=== PATIENT | female | born 1995 | race Caucasian/White ===

== ENCOUNTER → 2019-10-03 11:50 | Outpatient (BNVA) | payer MEDICAID, SELFPAY | PROVIDERS: PCP Obstetrics & Gynecology; Visit Provider Social Worker Clinical | DX: F33.2 Major depressive disorder, recurrent severe without psychotic features (principal); F40.10 Social phobia, unspecified; F43.12 Post-traumatic stress disorder, chronic | CPT/HCPCS: 90834 ==

== ENCOUNTER → 2019-10-04 13:33 | Outpatient (BNVA) | payer MEDICAID, SELFPAY | PROVIDERS: PCP Obstetrics & Gynecology; Visit Provider Obstetrics & Gynecology | DX: Z34.03 Encounter for supervision of normal first pregnancy, third trimester (principal) | CPT/HCPCS: 36415; 81003; 85027 ==

== ENCOUNTER → 2019-10-14 12:45 | Outpatient (BNVA) | payer MEDICAID, SELFPAY | PROVIDERS: PCP Obstetrics & Gynecology; Visit Provider Obstetrics & Gynecology | DX: Z34.90 Encounter for supervision of normal pregnancy, unspecified, unspecified trimester (principal) | CPT/HCPCS: 81003 ==

== ENCOUNTER → 2019-10-28 13:28 | Outpatient (BNVA) | payer MEDICAID, SELFPAY | PROVIDERS: Visit Provider Obstetrics & Gynecology | DX: Z34.90 Encounter for supervision of normal pregnancy, unspecified, unspecified trimester (principal) | CPT/HCPCS: 81000; 81003; 84315 ==

== ENCOUNTER → 2019-10-31 11:45 | Outpatient (BNVA) | payer MEDICAID, SELFPAY | PROVIDERS: Visit Provider Social Worker Clinical | DX: F33.2 Major depressive disorder, recurrent severe without psychotic features (principal); F40.10 Social phobia, unspecified; F43.12 Post-traumatic stress disorder, chronic | CPT/HCPCS: 90834; 90832 ==

== ENCOUNTER → 2019-11-05 13:08 | Outpatient (BNVA) | payer MEDICAID, SELFPAY | PROVIDERS: Visit Provider Obstetrics & Gynecology | DX: Z01.89 Encounter for other specified special examinations (principal) | CPT/HCPCS: 81000; 84315 ==

== ENCOUNTER → 2019-11-06 11:57 | Outpatient (BNVA) | payer MEDICAID, SELFPAY | PROVIDERS: Visit Provider Social Worker Clinical | DX: F33.2 Major depressive disorder, recurrent severe without psychotic features (principal); F40.10 Social phobia, unspecified; F43.12 Post-traumatic stress disorder, chronic; Z91.5 Personal history of self-harm | CPT/HCPCS: 90834 ==

== ENCOUNTER 2019-11-15 22:15 | Outpatient (CLI) | payer MEDICAID, SELFPAY ==
[2019-11-15 22:37] VITALS: TEMP 36.8
[2019-11-15 22:38] VITALS: BP 113/66; PULSE 86; BMI 29.9
--- NOTE | 2019-11-15 22:46 | US_ITS ---
WS: [id number] US OB BPP wo NST 69917 REASON FOR EXAM: decreased movement FINDINGS: The cervix measured 5.19 cm appear to be normal with a cephalic presentation fetus. The expected date of confinement December 28, 2019 with a fetus at 34 weeks 1 day gestation. The heart rate 133 week beats per minute. Normal breathing, movement, tone, and amniotic fluid with a biophysical profile of 8/8. US/US OB BPP wo NST 52980 IMPRESSION: Normal biophysical profile.
[2019-11-15 23:08] VITALS: BP 0/0
[2019-11-15 23:09] VITALS: BP 125/76; PULSE 96
[2019-11-15 23:25] VITALS: BP 125/76; RESP 16; TEMP 36.8
== END 2019-11-15 23:35 | disposition home or self-care (01) ==
LOC: OPOB 22:28 → OBGYN 23:25 → OPOB 11-18 07:39
PROVIDERS: Visit Provider Obstetrics & Gynecology
DX: O36.8190 Decreased fetal movements, unspecified trimester, not applicable or unspecified (principal); Z3A.00 Weeks of gestation of pregnancy not specified
CPT/HCPCS: 59025; 76819; 99211

== ENCOUNTER → 2019-11-18 10:50 | Outpatient (BNVA) | payer MEDICAID, SELFPAY | PROVIDERS: Visit Provider Obstetrics & Gynecology | DX: Z34.93 Encounter for supervision of normal pregnancy, unspecified, third trimester (principal) | CPT/HCPCS: 81003 ==

== ENCOUNTER → 2019-11-19 10:44 | Outpatient (BNVA) | payer MEDICAID, SELFPAY | PROVIDERS: Visit Provider Counselor Professional | DX: F33.2 Major depressive disorder, recurrent severe without psychotic features (principal); F40.10 Social phobia, unspecified; F43.12 Post-traumatic stress disorder, chronic; Z91.5 Personal history of self-harm | CPT/HCPCS: 90834 ==

== ENCOUNTER → 2019-11-27 09:44 | Outpatient (BNVA) | payer MEDICAID, SELFPAY | PROVIDERS: Visit Provider Counselor Professional | DX: F33.2 Major depressive disorder, recurrent severe without psychotic features (principal); F40.10 Social phobia, unspecified; F43.12 Post-traumatic stress disorder, chronic; Z91.5 Personal history of self-harm | CPT/HCPCS: 90834 ==

== ENCOUNTER → 2019-12-02 11:20 | Outpatient (BNVA) | payer MEDICAID, SELFPAY | PROVIDERS: Visit Provider Obstetrics & Gynecology | DX: Z34.90 Encounter for supervision of normal pregnancy, unspecified, unspecified trimester (principal) | CPT/HCPCS: 84315; 87081 ==

== ENCOUNTER → 2019-12-06 11:51 | Outpatient (BNVA) | payer MEDICAID, SELFPAY | PROVIDERS: Visit Provider Counselor Professional | DX: F43.12 Post-traumatic stress disorder, chronic (principal) | CPT/HCPCS: 90834 ==

== ENCOUNTER → 2019-12-09 11:04 | Outpatient (BNVA) | payer MEDICAID, SELFPAY | PROVIDERS: Visit Provider Obstetrics & Gynecology | DX: Z34.90 Encounter for supervision of normal pregnancy, unspecified, unspecified trimester (principal) | CPT/HCPCS: 81003 ==

== ENCOUNTER → 2019-12-16 11:07 | Outpatient (BNVA) | payer MEDICAID, SELFPAY | PROVIDERS: Visit Provider Obstetrics & Gynecology | DX: Z34.90 Encounter for supervision of normal pregnancy, unspecified, unspecified trimester (principal) | CPT/HCPCS: 81000 ==

== ENCOUNTER → 2019-12-24 10:15 | Outpatient (BNVA) | payer MEDICAID, SELFPAY | PROVIDERS: Visit Provider Obstetrics & Gynecology | DX: Z34.90 Encounter for supervision of normal pregnancy, unspecified, unspecified trimester (principal) | CPT/HCPCS: 81000 ==

== ENCOUNTER 2019-12-25 08:35 | Inpatient (IN) | payer MEDICAID, SELFPAY ==
[2019-12-25] VITALS (96 sets, daily range): BP systolic 0–141; BP diastolic 0–80; PULSE 67–116; RESP 16–18; TEMP 36.4–37; O2SAT 97–99
[2019-12-25 09:12] LABS: Basophils % 0.2 %; Eosinophils # 0.1 10^3/uL (0.0-0.8); Eosinophils % 0.7 %; Hematocrit 36.4 % (37.0-47.0); Hemoglobin 12.1 g/dL (11.5-15.3); Lymphocytes # 2.2 10^3/uL (0.8-4.8); Lymphocytes % 15.8 %; Mean Corpuscular HGB Conc 33.2 g/dL (30.0-36.0); Mean Corpuscular Hemoglobin 30.2 pg (28.0-34.0); Mean Corpuscular Volume 90.8 fL (81-99); Mean Platelet Volume 11.4 fL (7.4-10.4); Monocytes # 0.8 10^3/uL (0.2-0.9); Monocytes % 5.9 %; Neutrophils # 10.5 10^3/uL (1.8-7.7); Nucleated Red Blood Cells % 0 %; Platelet Count 208 10^3/cmm (130-400); Red Blood Count 4.01 10^6/uL (4.1-5.3); Red Cell Distribution Width 13.4 % (12.1-15.1); White Blood Count 13.8 10^3/uL (4.0-10.0)
[2019-12-25] MEDS: lactated ringers 1,000 ML 999 ML IV ×2 (09:23→11:55)
[2019-12-25] MEDS: dextrose 5%-lactated ringers 1,000 ML 125 ML IV ×2 (10:06→13:28)
[2019-12-25 10:41] LABS: Amphetamines Screen Urine Negative (Negative); Barbiturates Screen Urine Negative (Negative); Benzodiazepines Screen Urine Negative (Negative); Cocaine Screen Urine Negative (Negative); Opiate Screen Urine Negative (Negative); PCP Screen Urine Negative (Negative); THC Screen Urine Negative (Negative)
--- NOTE | 2019-12-25 11:22 | ANES.PAUD2 ---
Pre-Anesthetic Update Pre-Anesthetic Assessment: Date of Surgery/Procedure: 12/25/19 Preop Diagnosis: term pregnency ED 12/25 Proposed Procedure: epidural Any changes to Pre-Anesthetic Assessment?: No Labs Last 48hrs: Laboratory Results - last 48 hr 12/25/19 12/25/19 08:40 09:30 WBC 13.8 H RBC 4.01 L Hgb 12.1 Hct 36.4 L MCV 90.8 MCH 30.2 MCHC 33.2 RDW 13.4 Plt Count 208 MPV 11.4 H Neut % (Auto) 76.0 Lymph % (Auto) 15.8 [place] % (Auto) 5.9 Eos % (Auto) 0.7 Baso % (Auto) 0.2 Neut # (Auto) 10.5 H Lymph # (Auto) 2.2 [place] # (Auto) 0.8 Eos # (Auto) 0.1 Baso # (Auto) 0.0 Nucleated RBC % (a uto) 0 Nucleated RBCs # 0.0 Urine Opiates Scre en Negative Ur Barbiturates Sc reen Negative Ur Phencyclidine S crn Negative Ur Amphetamines Sc reen Negative U Benzodiazepines Scrn Negative Urine Cocaine Scre en Negative U Marijuana (THC) Screen Negative Vitals: Temperature 97.6 F 12/25/19 08:38 Temperature Source Oral 12/25/19 08:38 Pulse Rate 80 12/25/19 11:14 Respiratory Rate 17 12/25/19 08:38 Blood Pressure 125/68 12/25/19 11:14 Blood Pressure Bonnie n 87 12/25/19 11:14 Exam: Pre-Anes Outpt Exam: alert, oriented x 3, clear to auscultation bilaterally and regular rate & rhythm Cardiac Studies: No Data to Display
--- NOTE | 2019-12-25 11:57 | P.ANES_ITS ---
Anesthesia Procedures Procedure/Date: 12/25/19 epidural Procedure Narrative: epidural complete,bolus given, epidural pump initiated with MANAGING MANAGER education given, vitals taken during the procedure using OBIX system and satisfactory throughout, patient admits to decreased pain, report of procedure to OB RN Epidural: Time Out Performed: Yes Consents Signed: Procedure Consent Consent: requested by attending/covering physician, from patient, risks and benefits reviewed and patient agrees to proceed Lumbar Level: L3-L4 Epidural position: sitting Epidural procedure: sterile prep of area, 1% lidocaine to numb the area (3mL), 18 g needle, negative for paresthesia passed, neg for paresthesia, test dose given, 1.5% xylocaine 1:200k epi (5mL), 0.2% Ropivacaine bolus ml, placed PCEA, no systemic response, sterile dressing applied, L.U.D. no apparent complications and 0.2% Ropiavacaine @ mls/hr (13mL/HR)
[2019-12-26] VITALS (16 sets, daily range): BP systolic 0–134; BP diastolic 0–76; PULSE 67–97; RESP 16–18; TEMP 36.6–36.9
--- NOTE | 2019-12-26 00:13 | PM.DELIVERY ---
 Delivery Note: Date of delivery: December 26, 2019 Pre-delivery diagnoses: Term Post-delivery diagnoses: Term delivered Procedure: Spontaneously vaginal delivery Op report anesthesia: Epidural Delivering Physician: Nikhil Christie MD Estimated blood loss (mL): 500 Delivery: The patient was noted to be complete and pushing, and was placed in the dorsal lithotomy position, prepped and draped in the usual sterile fashion for a vaginal delivery. Pt. Noted to have epidural anesthesia. At time the patient delivered a Viable Male infant at 39+6 weeks weighing 3460 g with scores of 8 and 9 at one and five minutes, respectively. The vertex was delivered spontaneously over Intact perineum. The patient was asked to push and the head delivered spontaneously in the RAY position, over an intact perineum. A nuchal cord was checked and None noted. The anterior shoulder delivered easily and the posterior shoulder followed. The remainder of the was easily delivered and the oropharynx and nasopharynx was bulb suctioned. The infant was noted to have spontaneous cry and spontaneous movement of all four extremities. The cord was clamped x 2 and cut and noted to have 2 arteries and one vein. The infant was passed to the [facility] where the licensing engineer and nursing personnel were in attendance. Cord blood sample was then obtained. The placenta delivered intact Spontaneously and the uterus was explored. 20 units of Pitocin was placed in the IV bag to firm the uterus. Examination of the cervix and vaginal vault did not reveal any lacerations. A vaginal pack was then placed. Examination of the perineum showed no lacerations. The vaginal pack was then removed. The patient tolerated this procedure well, and recovered in L&D with her to the OB eaton. All sponge and needle counts were correct. Post-Delivery Status: Hemodynamically stable A&P Additional A&P Information Term delivered Coding Level of Care Code Acute Transitional Living Specialist for Deion Leiva
[2019-12-26] MEDS: fluoxetine 20 mg Capsule PO (09:55)
[2019-12-26] MEDS: prenatal vitamin Capsule 1 CAP PO (09:55)
[2019-12-26] MEDS: BuSPIRONE 10 mg Tablet PO ×2 (09:56→22:19)
[2019-12-26 12:40] LABS: Hematocrit 31.1 % (37.0-47.0); Hemoglobin 10.1 g/dL (11.5-15.3); Mean Corpuscular HGB Conc 32.5 g/dL (30.0-36.0); Mean Corpuscular Hemoglobin 29.8 pg (28.0-34.0); Mean Corpuscular Volume 91.7 fL (81-99); Mean Platelet Volume 10.7 fL (7.4-10.4); Platelet Count 149 10^3/cmm (130-400); Red Blood Count 3.39 10^6/uL (4.1-5.3); Red Cell Distribution Width 13.5 % (12.1-15.1); White Blood Count 15.5 10^3/uL (4.0-10.0)
[2019-12-27 01:00] VITALS: BP 127/66; PULSE 78; RESP 18
[2019-12-27 04:00] VITALS: BP 112/67; PULSE 82; RESP 16
--- NOTE | 2019-12-27 07:31 | PM.OBGYDC ---
Discharge Providers CHEMISTRY QUALITY CONTROL TECHNICIAN Date of Admission: 12/25/19 08:35 Date of Discharge: 01/06/20 Attending Provider at Admission: Brett Quevedo MD Attending Provider at Discharge: Nikhil Christie M.D. Diagnoses at Discharge Discharge Diagnosis (1) Term delivered: Status: Acute Problem details: 23-year-old female status post spontaneous vaginal delivery at 39 weeks +6 days, day 1 Reason for Visit Reason for Visit: Reason For Visit: Contractions Hospital Course Hospital Course: Patient came to labor and delivery with complaint of low back pain, bleeding and contractions. She was found to be an early active labor. After she brushed her membranes before active labor thick meconium was noted, but heart tracing was category 1. She progressed to have a spontaneous vaginal delivery without complications. observation was uneventful. She is afebrile and hemodynamically stable. Tolerating diet well. She have not made up her mind to which contraception she will be using and will be discussing it at the 6 weeks visit. Information Peripartum Data: Delivery Method: Vaginal Laceration description: None Episiotomy description: None complications: none Physical Exam Narrative: EXAM NARRATIVE: GA; alert and oriented x 3 HEENT: normal Breasts: engorged Nipples - skin intact Lungs; clear to auscultation Heart: regular rhythm, no murmurs. Abd: Appropriately tender. BS+. Uterine fundus below umbilicus. No Fundal Tenderness. Perineum: normal lochia. Extremities: no edema, no cyanosis, no tenderness. Urinary Catheter Management^: Colón: Cath Placed During This Visit: yes Reason for Continuing Indwelling Catheter: Required Immobilization for Trauma or Surgery or Anesthesia Urinary Catheter Date of Insertion: 12/25/19 Urinary Catheter Time of Insertion: 12:15 Discharge Data Data Completed and Pending: Labs from last 24 hours 12/26/19 12:33 WBC 15.5 H RBC 3.39 L Hgb 10.1 L Hct 31.1 L MCV 91.7 MCH 29.8 MCHC 32.5 RDW 13.5 Plt Count 149 MPV 10.7 H Vitals: Last Vital Signs Temp 98.1 F 12/26/19 16:00 Pulse 83 12/26/19 16:00 Resp 18 12/26/19 16:00 BP 110/68 12/26/19 16:00 Pulse Ox 99 12/25/19 11:53 Discharge Plan Discharge Patient Disposition: Home, Self-Care Condition: Stable Prescriptions: New acetaminophen 500 mg capsule 500 mg PO Q4H PRN (Reason: fever or pain) Qty: 60 RF: 0 Continued prenat.vits,jodie,[id number] Tablet 1 tab PO QDAY RF: 0 buspirone 10 mg tablet 10 mg PO BID Qty: 60 RF: 3 fluoxetine 20 mg capsule 20 mg PO DAILY Qty: 30 RF: 3 hydroxyzine HCl 25 mg tablet 25 mg PO QID PRN (Reason: anxiety) Qty: 40 RF: 2 Iron (ferrous sulfate) 325 mg (65 mg iron) tablet 325 mg PO BID RF: 0 Discharge Orders: Discharge Order (Routine); Ordered 12/27/19 Ordered By: Nikhil Christie Referrals: Brett Quevedo MD [Physician] - 6 Weeks (Your 6 week check up with Dr. Quevedo is scheduled on 02-07-20 at 12:45 pm.) Discharge Diet: As Directed Discharge Activity: Increase activity as tolerated Patient Instructions: Iron Supplements (By mouth), Acetaminophen (By mouth), Buspirone (By mouth), Fluoxetine (By mouth), Vitamins (By mouth), Hydroxyzine Hydrochloride (By mouth), Vaginal Delivery (DC), OB Discharge Report, OB Food/Drug Interaction Guide, OB Care at Home, OB Home Care, OB Proud Parent Packet, OB Vaginal Deliveries Activity Restrictions/Additional Instructions: Pelvic rest for 6 weeks (no sex, no tampons, no vaginal douches). Return to the emergency room if any fever, increased bleeding or pain. Discharge Date/Time: 12/27/19 12:15 Discharge Attestations CHEMISTRY QUALITY CONTROL TECHNICIAN Time Spent in Discharge Care*: greater than 30 min Specific Discharge Activities: Specific discharge activities: educating patient and educating and/or supporting family/caregiver Time Spent in Smoking Cessation: Time spent discussing smoking cessation with patient: 3 to 10 minutes Coding Level of Care Code Acute Link Wire Fabric Machine Operator for Kettyg Fwd Diagnoses Term delivered O80
--- NOTE | 2019-12-27 07:33 | P.PN_ITS ---
Subjective Subjective: Interval history: 23-year-old female , status post spontaneous vaginal delivery day 1. Feeling well, denies any pain and discomfort. Vitals/I&O/Wt Last Vital Signs Temp 98.1 F 12/26/19 16:00 Pulse 83 12/26/19 16:00 Resp 18 12/26/19 16:00 BP 110/68 12/26/19 16:00 Pulse Ox 99 12/25/19 11:53 Weight last 48 hrs Weight 87.09 kg Physical Exam Narrative: EXAM NARRATIVE: GA; alert and oriented x 3 HEENT: normal Breasts: engorged Nipples - skin intact Lungs; clear to auscultation Heart: regular rhythm, no murmurs. Abd: Appropriately tender. BS+. Uterine fundus below umbilicus. No Fundal Tenderness. Perineum: normal lochia. Extremities: no edema, no cyanosis, no tenderness. Urinary Catheter Management^: Colón: Cath Placed During This Visit: yes Reason for Continuing Indwelling Catheter: Required Immobilization for Trauma or Surgery or Anesthesia Urinary Catheter Date of Insertion: 12/25/19 Urinary Catheter Time of Insertion: 12:15 Data : 12/26/19 12:33 A&P Additional A&P Information 23-year-old female status post spontaneous vaginal delivery without complications , day 1. She is afebrile hemodynamically stable. Attestations Medical Necessity Statement*: In my professional opinion for admitting diagnosis Coding Level of Care Code Acute Calculus Professor for Deion Leiva
[2019-12-27] MEDS: lanolin oint 7 gm 1 APPLIC TOPICAL (07:47)
[2019-12-27 10:01] VITALS: BP 104/65; PULSE 93; RESP 15; TEMP 36.8
[2019-12-27] MEDS: prenatal vitamin Capsule 1 CAP PO (10:01)
[2019-12-27] MEDS: docusate sodium 100 mg Capsule PO (10:01)
[2019-12-27] MEDS: BuSPIRONE 10 mg Tablet PO (10:02)
[2019-12-27] MEDS: fluoxetine 20 mg Capsule PO (10:02)
[2019-12-27] MEDS: benzocaine-menthol 78 gm Canister 1 SPRAY TOPICAL (10:03)
--- NOTE | 2019-12-27 10:49 | PC.NURSE ---
Physical Assessment numerous scarring for what appears to be previous self-mutilation noted on bilateral upper and lower arms.
[2019-12-27] MEDS: measles,mumps,rubella pf Vial (w/diluent) 0.5 ML SUBCUT (11:42)
[2019-12-27 13:19] VITALS: BP 104/65; PULSE 93; RESP 15; TEMP 36.8
== END 2019-12-27 12:15 | disposition home or self-care (01) | DRG 807 ==
LOC: OPOB 08:37
PROVIDERS: Obstetrics & Gynecology; Admitting Provider Obstetrics & Gynecology; Visit Provider Obstetrics & Gynecology
DX: O80 Encounter for full-term uncomplicated delivery (principal); Z37.0 Single live birth; Z3A.39 39 weeks gestation of pregnancy
CPT/HCPCS: 12345; 36415; 51702; 59409; 80306; 85025; 85027; 90707; 96372; 98960; 99211; J2795

== ENCOUNTER → 2019-12-27 11:08 | Outpatient (BNVA) | payer MEDICAID, SELFPAY | PROVIDERS: Visit Provider Counselor Professional | DX: F33.2 Major depressive disorder, recurrent severe without psychotic features (principal); F43.12 Post-traumatic stress disorder, chronic | CPT/HCPCS: 90832 ==

== ENCOUNTER → 2020-07-10 08:39 | Outpatient (BNVA) | payer MEDICAID, SELFPAY | PROVIDERS: Visit Provider Counselor Professional | DX: F33.2 Major depressive disorder, recurrent severe without psychotic features (principal); F43.12 Post-traumatic stress disorder, chronic | CPT/HCPCS: 90834 ==

== ENCOUNTER → 2020-07-16 07:37 | Outpatient (BNVA) | payer MEDICAID, SELFPAY | PROVIDERS: Visit Provider Counselor Professional | DX: F43.12 Post-traumatic stress disorder, chronic (principal) | CPT/HCPCS: 90834 ==

== ENCOUNTER → 2020-07-28 07:51 | Outpatient (BNVA) | payer MEDICAID, SELFPAY | PROVIDERS: Visit Provider Counselor Professional | DX: F43.12 Post-traumatic stress disorder, chronic (principal) | CPT/HCPCS: 90834 ==

== ENCOUNTER → 2020-08-11 08:03 | Outpatient (BNVA) | payer MEDICAID, SELFPAY | PROVIDERS: Visit Provider Counselor Professional | DX: F43.12 Post-traumatic stress disorder, chronic (principal) | CPT/HCPCS: 90834 ==

== ENCOUNTER → 2020-08-31 08:28 | Outpatient (BNVA) | payer MEDICAID, SELFPAY | PROVIDERS: Visit Provider Counselor Professional | DX: F43.12 Post-traumatic stress disorder, chronic (principal) | CPT/HCPCS: 90834 ==

== ENCOUNTER → 2020-09-17 08:00 | Outpatient (BNVA) | payer MEDICAID, SELFPAY | PROVIDERS: Visit Provider Counselor Professional | DX: F43.12 Post-traumatic stress disorder, chronic (principal) | CPT/HCPCS: 90834 ==

== ENCOUNTER → 2020-10-07 08:13 | Outpatient (BNVA) | payer MEDICAID, SELFPAY | PROVIDERS: Visit Provider Counselor Professional | DX: F43.12 Post-traumatic stress disorder, chronic (principal) | CPT/HCPCS: 90834 ==

== ENCOUNTER → 2020-10-21 08:21 | Outpatient (BNVA) | payer MEDICAID, SELFPAY | PROVIDERS: Visit Provider Counselor Professional | DX: F43.12 Post-traumatic stress disorder, chronic (principal) | CPT/HCPCS: 90834 ==

== ENCOUNTER → 2020-11-05 07:42 | Outpatient (BNVA) | payer MEDICAID, SELFPAY | PROVIDERS: Visit Provider Counselor Professional | DX: F43.12 Post-traumatic stress disorder, chronic (principal) | CPT/HCPCS: 90834 ==

== ENCOUNTER → 2020-11-18 07:49 | Outpatient (BNVA) | payer MEDICAID, SELFPAY | PROVIDERS: Visit Provider Counselor Professional | DX: F43.12 Post-traumatic stress disorder, chronic (principal) | CPT/HCPCS: 90834 ==

== ENCOUNTER → 2020-12-01 08:02 | Outpatient (BNVA) | payer MEDICAID, SELFPAY | PROVIDERS: Visit Provider Counselor Professional | DX: F33.2 Major depressive disorder, recurrent severe without psychotic features (principal) | CPT/HCPCS: 90834 ==

== ENCOUNTER → 2020-12-15 08:08 | Outpatient (BNVA) | payer MEDICAID, SELFPAY | PROVIDERS: Visit Provider Counselor Professional | DX: F33.2 Major depressive disorder, recurrent severe without psychotic features (principal) | CPT/HCPCS: 90834 ==

== ENCOUNTER → 2021-01-20 08:17 | Outpatient (BNVA) | payer MEDICAID, SELFPAY | PROVIDERS: Visit Provider Counselor Professional | DX: F33.2 Major depressive disorder, recurrent severe without psychotic features (principal) | CPT/HCPCS: 90834 ==

== ENCOUNTER → 2021-02-16 08:54 | Outpatient (BNVA) | payer MEDICAID, SELFPAY | PROVIDERS: Visit Provider Counselor Professional | DX: F43.12 Post-traumatic stress disorder, chronic (principal); F33.2 Major depressive disorder, recurrent severe without psychotic features | CPT/HCPCS: 90791 ==

== ENCOUNTER → 2021-03-09 10:51 | Outpatient (BNVA) | payer MEDICAID, SELFPAY | PROVIDERS: Visit Provider Counselor Professional | DX: F43.12 Post-traumatic stress disorder, chronic (principal); F33.2 Major depressive disorder, recurrent severe without psychotic features | CPT/HCPCS: 90834 ==

== ENCOUNTER → 2021-03-31 08:13 | Outpatient (BNVA) | payer MEDICAID, SELFPAY | PROVIDERS: Visit Provider Counselor Professional | DX: F43.12 Post-traumatic stress disorder, chronic (principal); F33.41 Major depressive disorder, recurrent, in partial remission | CPT/HCPCS: 90834 ==

== ENCOUNTER → 2021-04-12 12:07 | Outpatient (BNVA) | payer OTHER, SELFPAY | PROVIDERS: Visit Provider Nurse Practitioner Family | DX: Z20.822 Contact with and (suspected) exposure to COVID-19 (principal) | CPT/HCPCS: 87635 ==

== ENCOUNTER → 2021-04-28 08:43 | Outpatient (BNVA) | payer OTHER, SELFPAY | PROVIDERS: Visit Provider Counselor Professional | DX: F43.12 Post-traumatic stress disorder, chronic (principal) | CPT/HCPCS: 90834 ==

== ENCOUNTER 2021-06-29 13:23 | Outpatient (CLI) | payer MEDICAID, SELFPAY ==
--- NOTE | 2021-06-29 13:45 | XR_ITS ---
WS: [id number] Exam: XR thoracic spine 2V [id number] Date/Time of Exam: 06/29/2021 1:45 PM Reason For Exam: CHRONIC BACK PAIN No acute fracture or dislocation. Disc spaces are preserved. Normal paraspinal soft tissues. There ma y be slight levoscoliosis however this could be positional. XR/XR thoracic spine 2V [id number] IMPRESSION: 1. No fracture or malalignment. 2. Slight levoscoliosis that may be positional.
--- NOTE | 2021-06-29 13:45 | XR_ITS ---
WS: [id number] Exam: XR cervical spine 3V* [id number] Date/Time of Exam: 06/29/2021 1:45 PM Reason For Exam: CHRONIC BACK PAIN No fracture or dislocation. There is straightening and reversal of the normal cervical C curve. The o dontoid is intact. Paraspinal soft tissues appear normal. XR/XR cervical spine 3V* [id number] IMPRESSION: 1. No fracture or dislocation. 2. Straightening and reversal of the normal cervical lordosis.
== END 2021-06-29 13:24 | disposition home or self-care (01) ==
LOC: RAD 13:31
PROVIDERS: PCP Family Medicine; Visit Provider Family Medicine
DX: M54.6 Pain in thoracic spine (principal); M54.2 Cervicalgia; G89.29 Other chronic pain
CPT/HCPCS: 72040; 72070

== ENCOUNTER → 2021-09-13 13:47 | Outpatient (BNVA) | payer OTHER, MEDICAID, SELFPAY | PROVIDERS: PCP Family Medicine; Visit Provider Counselor Mental Health | DX: F43.12 Post-traumatic stress disorder, chronic (principal) | CPT/HCPCS: 90834 ==

== ENCOUNTER → 2021-09-21 13:57 | Outpatient (BNVA) | payer OTHER, MEDICAID, SELFPAY | PROVIDERS: PCP Family Medicine; Visit Provider Counselor Mental Health | DX: F43.12 Post-traumatic stress disorder, chronic (principal) | CPT/HCPCS: 90837; 90834 ==

== ENCOUNTER 2021-11-25 20:54 | Emergency (ER) | payer MEDICAID, SELFPAY ==
[2021-11-25 21:05] VITALS: BP 124/78; PULSE 88; RESP 16; TEMP 36.2; O2SAT 97; BMI 31.3
--- NOTE | 2021-11-25 21:14 | W.ED.GENADLT ---
HPI - General Adult General: Chief complaint: General Medical Stated complaint: Drain Tube Came Out Time Seen by Provider: 11/25/21 21:02 Source: patient and family Mode of arrival: ambulatory Limitations: no limitations History of Present Illness: Patient is a 26-year-old female who presents to ED today with a concern that one of her MARCIANO drains might be malfunctioning. Patient states she had a breast reduction surgery in [place] 3 days ago and had bilateral MARCIANO drains placed. She states when she was taking off clothing earlier today she felt like her right drain pulled and states now her bulb is not holding suction as well and has noticed her tube does not seem to be draining as well as the left tube. She is not having any pain. Associated symptoms: Reports no associated symptoms; Deny chest pain, dyspnea or malaise Treatments prior to arrival: none Review of Systems Const: Denies: fever(s), chills, body aches, fatigue or malaise Card: Denies: chest pain Resp: Denies: dyspnea GI: Denies: abdominal pain Musc: Denies: neck pain, back pain, extremity pain or joint pain PFSH ED PFSH: Family History Grandfather Hypertension maternal Heart disease maternal Hyperlipidemia maternal Lung cancer maternal Mother Diabetes Stroke Grandmother Stroke paternal Thyroid condition paternal Breast cancer maternal great Family/Other Breast cancer maternal great aunt Ovarian cancer maternal great aunt Uterine cancer maternal great aunt, paternal aunt Social History Smoking and tobacco status: never smoked Alcohol intake: never Physical Exam Const: COMMON NORMALS: no acute distress, average body habitus, patient oriented x3, no limitations, healthy appearing, alert and well nourished GENERAL APPEARANCE: cooperative ORIENTATION/CONSCIOUSNESS: Yes awake, Yes oriented to person, Yes oriented to place and Yes oriented to time Chest: COMMONS NORMALS: normal inspection of the chest OTHER: bilateral MARCIANO drains noted; both sites are clean w/ no drainage, erythema, or odor; her R MARCIANO drain site does have an intact stitch that looks like it has been slightly pulled out (less than 1cm); bulb is still holding suction-maybe slightly less than the L but there is still fluid/drainage happening in tubing/bulb Resp: COMMON NORMALS: normal respiratory effort and clear to auscultation bilaterally AUSCULTATION: clear to auscultation bilaterally Cardio: COMMON NORMALS: regular rate and regular rhythm RATE: regular rate RHYTHM: regular rhythm Neuro: COMMON NORMALS: patient oriented x3 SENSORIUM/ORIENTATION: Yes alert, Yes oriented to person, Yes oriented to place and Yes oriented to time Course Vital Signs: Vital signs: Vital Signs Temperature 97.1 F L 11/25/21 21:05 Pulse Rate 88 11/25/21 21:05 Respiratory Rate 16 11/25/21 21:05 Blood Pressure 124/78 11/25/21 21:05 Pulse Oximetry 97 11/25/21 21:05 MDM - General Adult Medical Decision Making At this point there is no evidence for infection. Family is asking if I would remove the MARCIANO drains which I do not feel comfortable doing. She has a follow-up appointment with her surgeon in a few days. Ultimately her right MARCIANO drain is still functioning minimally. There is no risk of leaving the drain as is and contacting her surgeon tomorrow for further instructions. Return to ED precautions verbally given to patient/family. Discharge Plan Discharge Patient Disposition: Home Clinical Impression: Broken Kulwinder-Wiseman drain Qualifiers: Encounter type: initial encounter Qualified Code(s): T85.698A - Other mechanical complication of other specified internal prosthetic devices, implants and grafts, initial encounter Condition: Stable Prescriptions: No Action buspirone 10 mg tablet 10 mg PO BID 0RF fluoxetine 40 mg capsule 40 mg PO DAILY 0RF Discharge Orders: Discharge ED (Routine); Ordered 11/25/21 Ordered By: Candy Barker Referrals: Tiago Grimaldo MD [Primary Care Provider] - Coding Level of Care Code ED Associate Designer for Deion Leiva
== END 2021-11-25 21:35 | disposition home or self-care (01) ==
PROVIDERS: Emergency Provider Physician Assistant; PCP Family Medicine
DX: T85.698A Other mechanical complication of other specified internal prosthetic devices, implants and grafts, initial encounter (principal)
CPT/HCPCS: 99281

== ENCOUNTER 2021-12-05 06:43 | Emergency (ER) | payer MEDICAID, SELFPAY ==
[2021-12-05 07:03] VITALS: BP 112/72; PULSE 80; RESP 18; TEMP 36.8; O2SAT 97; BMI 31.3
--- NOTE | 2021-12-05 07:15 | W.ED.SKABFB ---
HPI - Skin/Abscess/Foreign Bdy General: Chief complaint: Skin/Abscess/Foreign Body Stated complaint: Swelling an redness under breast Time Seen by Provider: 12/05/21 07:09 Source: patient Mode of arrival: ambulatory Limitations: no limitations History of Present Illness: 26-year-old female presents to the ER today for redness, tenderness, swelling under her left breast. Patient had a bilateral breast reduction about 2-1/2 weeks ago. Patient reports things have been going pretty well until yesterday when she noticed some increased tenderness and tightness in her left breast. Patient reports underneath it it became red and has worsened overnight. Patient reports that just feels very tight and tender. She did not sleep well due to the pain. Patient plans to call her surgeon tomorrow regarding this however felt like she might need some antibiotics today. Denies any fever or chills. Denies any nausea or vomiting. Patient reports otherwise the healing process has been going well. Onset (ago): hour(s) (24) Location: chest (Left breast) Severity: moderate Pain Consistency: constant Context: other (Recent breast reduction) Review of Systems General: Reports: 10 or more systems reviewed and unremarkable except in HPI and below PFSH ED PFSH: Family History Grandfather Hypertension maternal Heart disease maternal Hyperlipidemia maternal Lung cancer maternal Mother Diabetes Stroke Grandmother Stroke paternal Thyroid condition paternal Breast cancer maternal great Family/Other Breast cancer maternal great aunt Ovarian cancer maternal great aunt Uterine cancer maternal great aunt, paternal aunt Social History Smoking and tobacco status: never smoked Alcohol intake: never Physical Exam Const: COMMON NORMALS: no acute distress, average body habitus, patient oriented x3, no limitations, healthy appearing, alert and well nourished Neck/C-Spine: COMMON NORMALS: full ROM, no lymphadenopathy and supple Chest: Breast/axilla inspection: Yes abnormal inspection of the breast (Left breast has erythema, tenderness, swelling underneath.) OTHER: Patient has had recent bilateral breast reduction. Most incisions appear to be healing well however there is significant redness and mild swelling noted on the left breast inferior. No active drainage is noted. This is warm to the touch. Resp: COMMON NORMALS: normal respiratory effort, No retractions and clear to auscultation bilaterally AUSCULTATION: clear to auscultation bilaterally Cardio: COMMON NORMALS: regular rate, regular rhythm and No murmurs present (Cardio) RATE: regular rate RHYTHM: regular rhythm GI: COMMON NORMALS: Normal to inspection, nondistended, normoactive bowel sounds present, Soft to palpation and non-tender PALPATION: Yes Soft to palpation Extremity: COMMON NORMALS: normal to inspection and full ROM Neuro: COMMON NORMALS: patient oriented x3 SENSORIUM/ORIENTATION: Yes alert Psych: COMMON NORMALS: mental status grossly normal, Normal thought process present and cooperative THOUGHT PROCESS: Normal thought process present Skin: NARRATIVE SKIN EXAM: See chest exam Course ED course: Patient presents the ER today with concerns for infection of a recent surgical incision site. Patient had bilateral breast reduction about 2-1/2 weeks ago. Patient has tenderness, redness, swelling under the left breast. On exam there does appear to be increased erythema under the left breast in comparison to the right. No drainage is noted at this time. We will get a CBC and start patient on antibiotics outpatient. Patient will call her surgeon tomorrow. Vital Signs: Vital signs: Vital Signs Temperature 98.3 F 12/05/21 07:03 Pulse Rate 80 12/05/21 07:03 Respiratory Rate 18 12/05/21 07:03 Blood Pressure 112/72 12/05/21 07:03 Pulse Oximetry 97 12/05/21 07:03 MDM - Skin/Abscess/Foreign Bdy Medicial Decision Making 26-year-old female patient presents the ER today with concerns for infection of a recent surgical incision site. Patient had bilateral breast reduction about 2-1/2 weeks ago. Patient has tenderness, redness, swelling under the left breast. On exam there does appear to be increased erythema under the left breast in comparison to the right. No drainage is noted at this time. We will get a CBC and start patient on antibiotics outpatient. White count very minimally bumped, hemoglobin slightly low. We'll place patient on Bactrim at this time. 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 Patient will call her surgeon tomorrow. Return to the ER with new or worsening symptoms. Patient verbalized understanding and is in agreement with the treatment plan. Lab Data Reviewed : 12/05/21 07:30 Laboratory Results WBC 10.9 10^3/uL (4.0-10.0) H 12/05/21 07:30 RBC 3.71 10^6/uL (4.1-5.3) L 12/05/21 07:30 Hgb 10.7 g/dL (11.5-15.3) L 12/05/21 07:30 Hct 33.4 % (37.0-47.0) L 12/05/21 07:30 MCV 90.0 fl (81-99) 12/05/21 07:30 MCH 28.8 pg (28.0-34.0) 12/05/21 07:30 MCHC 32.0 g/dL (30.0-36.0) 12/05/21 07:30 RDW 12.5 % (12.1-15.1) 12/05/21 07:30 Plt Count 320 10^3/cmm (130-400) 12/05/21 07:30 MPV 9.7 fL (7.4-10.4) 12/05/21 07:30 Neut % (Auto) 67.6 % 12/05/21 07:30 Lymph % (Auto) 22.7 % 12/05/21 07:30 [place] % (Auto) 7.3 % 12/05/21 07:30 Eos % (Auto) 1.6 % 12/05/21 07:30 Baso % (Auto) 0.4 % 12/05/21 07:30 Neut # (Auto) 7.35 10^3/uL (1.8-7.7) 12/05/21 07:30 Lymph # (Auto) 2.5 10^3/uL (0.8-4.8) 12/05/21 07:30 [place] # (Auto) 0.8 10^3/uL (0.2-0.9) 12/05/21 07:30 Eos # (Auto) 0.2 10^3/uL (0.0-0.8) 12/05/21 07:30 Baso # (Auto) 0.0 10^3/uL (0.0-0.1) 12/05/21 07:30 Nucleated RBC % (auto) 0 % 12/05/21 07:30 Nucleated RBCs # 0.0 /100WBC 12/05/21 07:30 Discharge Plan Discharge Patient Disposition: Home Clinical Impression: Cellulitis Condition: Stable Prescriptions: New Bactrim DS 800-160 mg tablet 1 tab PO Q12H 10 Days Qty: 20 0RF No Action buspirone 10 mg tablet 10 mg PO BID 0RF fluoxetine 40 mg capsule 40 mg PO DAILY 0RF Discharge Orders: Discharge ED (Routine); Ordered 12/05/21 Ordered By: Michelle Ramsey Referrals: Tiago Grimaldo MD [Primary Care Provider] - Discharge Diet: Advance as tolerated Discharge Activity: Limit activity as instructed Activity Restrictions/Additional Instructions: Take antibiotics as prescribed. Tylenol alternating with Motrin for pain. Follow-up with the surgeon tomorrow regarding cellulitis. Return to ER with new or worsening symptoms. Coding Level of Care Code ED Massotherapist for Deion Leiva Exam Comprehensive
[2021-12-05 08:07] LABS: Basophils % 0.4 %; Eosinophils # 0.2 10^3/uL (0.0-0.8); Eosinophils % 1.6 %; Hematocrit 33.4 % (37.0-47.0); Hemoglobin 10.7 g/dL (11.5-15.3); Lymphocytes # 2.5 10^3/uL (0.8-4.8); Lymphocytes % 22.7 %; Mean Corpuscular Hemoglobin 28.8 pg (28.0-34.0); Mean Platelet Volume 9.7 fL (7.4-10.4); Monocytes # 0.8 10^3/uL (0.2-0.9); Monocytes % 7.3 %; Neutrophils # 7.35 10^3/uL (1.8-7.7); Neutrophils % 67.6 %; Nucleated Red Blood Cells % 0 %; Platelet Count 320 10^3/cmm (130-400); Red Blood Count 3.71 10^6/uL (4.1-5.3); Red Cell Distribution Width 12.5 % (12.1-15.1); White Blood Count 10.9 10^3/uL (4.0-10.0)
[2021-12-05 08:16] VITALS: BP 120/56; PULSE 72; RESP 18; TEMP 36.2
== END 2021-12-05 08:18 | disposition home or self-care (01) ==
PROVIDERS: Emergency Provider Physician Assistant; PCP Family Medicine
DX: T81.49XA Infection following a procedure, other surgical site, initial encounter (principal); Z98.890 Other specified postprocedural states
CPT/HCPCS: 36415; 85025; 99283

== ENCOUNTER 2022-05-12 08:27 | Outpatient (CLI) | payer MEDICAID, SELFPAY ==
--- NOTE | 2022-05-12 08:34 | US_ITS ---
WS: [id number] EARLY OBSTETRICAL ULTRASOUND (<14 WEEKS). HISTORY: POSITIVE TEST COMPARISON: None available. Single intrauterine gestational sac is identified. Cardiac activity at 120 BPM. [place]-rump length sky sures 0.9 cm which corresponds to a gestation of 6w6d. Normal-appearing yolk sac and amnion demonstra deep. No subchorionic hemorrhage. No free fluid. Both ovaries are identified. Corpus luteal cyst associated with the RIGHT ovary. Corpus luteal cyst m easures 1.9 x 2.4 x 2.2 cm. There is an additional smaller exophytic cyst measuring 1.5 x 1.3 x 1.1 c m from the ovary. LEFT ovary is normal. US/US OB <=14 wk fetus w transvag IMPRESSION: 1. Single intrauterine gestation of 6 weeks 6 days with an EDC of 12/30/2022. 2. Normal cardiac activity.
== END 2022-05-12 08:28 | disposition home or self-care (01) ==
LOC: RAD 08:28
PROVIDERS: PCP Family Medicine; Visit Provider Family Medicine
DX: Z32.01 Encounter for pregnancy test, result positive (principal)
CPT/HCPCS: 76801; 76817

== ENCOUNTER 2022-06-25 20:11 | Emergency (ER) | payer MEDICAID, SELFPAY ==
[2022-06-25 20:17] VITALS: BP 156/99; PULSE 85; RESP 16; TEMP 36.7; O2SAT 97; BMI 31.9
[2022-06-25 20:55] VITALS: BP 115/83; PULSE 89; RESP 18; O2SAT 99
--- NOTE | 2022-06-25 20:55 | PC.NURSE ---
assumed care of patient at this time.
--- NOTE | 2022-06-25 21:11 | ED_ITS ---
HPI - Dizziness General: Chief Complaint: Dizziness Stated Complaint: Dizzy, sneezing/coughing blood Time Seen by Provider: 06/25/22 20:46 History of Present Illness: HPI Narrative: Patient is a G2, P1 27-year-old female comes to the ED with dizziness. Past medical history of iron deficiency anemia. She is currently 12 weeks and has no related concerns. Denies any vaginal bleeding, abdominal pain, nausea/vomiting. She has seen her OB doctor twice in this first 12 weeks for routine care. Over the past month she states that she has had on and off episodes of mild dizziness. Today she a lot more dizzy and it lasted longer than usual episode. Patient is currently being treated for bacterial vaginosis and took her first dose of Flagyl today. Denies any head trauma. Her main concern is to come get blood work checked to see if her iron levels are getting too low and causing her symptoms. Associated symptoms: Denies chest pain, chills, headache(s), nausea, nasal congestion, palpitations or vomiting Associated neuro symptoms: Deny numbness in extremities Review of Systems Const: Denies: fever(s), chills or fatigue Eyes: Denies: change in vision or eye discomfort ENMT: Denies: throat pain, odynophagia, nasal discharge or nasal congestion Card: Denies: chest pain, palpitations, edema, swelling of feet/ankles, dyspnea on exertion or orthopnea Resp: Denies: dyspnea, productive cough or non-productive cough GI: Denies: abdominal pain, nausea, vomiting, diarrhea, constipation or hematochezia : Denies: flank pain, dysuria, hematuria, vaginal bleeding or pelvic pain Musc: Denies: neck pain, back pain or extremity swelling Skin/Breast: Denies: rash or new lesions Neuro: Reports: dizziness (episodic); Denies: headache(s), numbness in extremities or weakness in extremities PFSH ED PFSH: Medical History Iron deficiency anemia Surgical History No history of previous surgery Family History Grandfather Hypertension maternal Heart disease maternal Hyperlipidemia maternal Lung cancer maternal Mother Diabetes Stroke Grandmother Stroke paternal Thyroid condition paternal Breast cancer maternal great Family/Other Breast cancer maternal great aunt Ovarian cancer maternal great aunt Uterine cancer maternal great aunt, paternal aunt Social History Smoking and tobacco status: never smoked Alcohol intake: never Female Reproductive History: Date of last menstrual period: 03/27/22 Physical Exam Const: COMMON NORMALS: no acute distress, patient oriented x3, healthy appearing and alert HENMT: COMMON NORMALS: normocephalic HEAD & SCALP: normocephalic MOUTH: Normal oral and palatal mucosa present THROAT: posterior oropharynx normal and uvula midline Eye: COMMON NORMALS: Equal, round and reactive pupils present and conjunctivae normal CONJUNCTIVA: Yes conjunctivae normal PUPIL: Yes Equal, round and reactive pupils present Neck/C-Spine: COMMON NORMALS: supple GENERAL: Yes normal visual inspection Resp: COMMON NORMALS: normal respiratory effort, No retractions, No use of accessory muscles and clear to auscultation bilaterally AUSCULTATION: clear to auscultation bilaterally Cardio: COMMON NORMALS: regular rate, regular rhythm, S1 normal heart sound present, S2 normal heart sound present, No gallops present (Cardio), No clicks present (Cardio), No murmurs present (Cardio) and Peripheral pulses 2+ throughout RATE: regular rate RHYTHM: regular rhythm HEART SOUNDS: S1 normal heart sound present and S2 normal heart sound present PERIPHERAL PULSES: Peripheral pulses 2+ throughout GI: COMMON NORMALS: Normal to inspection, nondistended, normoactive bowel sounds present, Soft to palpation, non-tender and no masses PALPATION: Yes Soft to palpation : COMMON NORMALS: Yes no CVA tenderness BLADDER/KIDNEY EXAM: Yes no CVA tenderness Back/Pelvis: COMMON NORMALS: no CVA tenderness Extremity: COMMON NORMALS: normal to inspection Neuro: COMMON NORMALS: patient oriented x3 SENSORIUM/ORIENTATION: Yes alert GAIT: Yes Normal gait present Skin: GENERAL SKIN EXAM: dry skin Course Vital Signs: Vital signs: Vital Signs Temperature 98.1 F 06/25/22 20:17 Pulse Rate 79 06/25/22 21:14 Respiratory Rate 16 06/25/22 22:41 Blood Pressure 115/65 06/25/22 21:14 Pulse Oximetry 100 06/25/22 22:41 Oxygen Delivery Fl thod 06/25/22 21:[address] [facility] - Dizziness Medical Decision Making Patient is a 27-year-old female who is currently 12 weeks comes to the ED with episode of dizziness. She states she has had these episodes in the past but today it was a lot worse. She denies any related complaints such as vaginal bleeding, abdominal pain, nausea/vomiting or fevers. She has a history of iron deficient anemia. Patient was diagnosed with bacterial vaginosis and was started on Flagyl and took her first dose today. 1 very co mmon side effect of Flagyl is dizziness. Vitals are stable. Exam of patient is benign. Her labs are all unremarkable. EKG showed normal sinus rhythm with no other acute findings noted. Patient's symptoms of dizziness likely side effect to her recently started Flagyl. She was told to continue taking medication to treat the bacterial vaginosis and to follow-up with her OB doctor at her next sc heduled appointment for further evaluation. Return to ED precautions given. Patient restarted with plan. Lab Data I reviewed the patient's lab results. : 06/25/22 21:14 06/25/22 21:14 Laboratory Results WBC 5.4 10^3/uL (4.0-10.0) 06/25/22 21:14 RBC 3.95 10^6/uL (4.1-5.3) L 06/25/22 21:14 Hgb 11.6 g/dL (11.5-15.3) 06/25/22 21:14 Hct 35.0 % (37.0-47.0) L 06/25/22 21:14 MCV 88.6 fl (81-99) 06/25/22 21:14 MCH 29.4 pg (28.0-34.0) 06/25/22 21:14 MCHC 33.1 g/dL (30.0-36.0) 06/25/22 21:14 RDW 12.7 % (12.1-15.1) 06/25/22 21:14 Plt Count 206 10^3/cmm (130-400) 06/25/22 21:14 MPV 10.5 fL (7.4-10.4) H 06/25/22 21:14 Neut % (Auto) 66.4 % 06/25/22 21:14 Lymph % (Auto) 23.4 % 06/25/22 21:14 [place] % (Auto) 8.7 % 06/25/22 21:14 Eos % (Auto) 0.9 % 06/25/22 21:14 Baso % (Auto) 0.2 % 06/25/22 21:14 Neut # (Auto) 3.60 10^3/uL (1.8-7.7) 06/25/22 21:14 Lymph # (Auto) 1.3 10^3/uL (0.8-4.8) 06/25/22 21:14 [place] # (Auto) 0.5 10^3/uL (0.2-0.9) 06/25/22 21:14 Eos # (Auto) 0.1 10^3/uL (0.0-0.8) 06/25/22 21:14 Baso # (Auto) 0.0 10^3/uL (0.0-0.1) 06/25/22 21:14 Nucleated RBC % (auto) 0 % 06/25/22 21:14 Nucleated RBCs # 0.0 /100WBC 06/25/22 21:14 Sodium 140 mmol/L (136-145) 06/25/22 21:14 Potassium 3.9 mmol/L (3.5-5.1) 06/25/22 21:14 Chloride 104 mmol/L (98-107) 06/25/22 21:14 Carbon Dioxide 25 mmol/L (22-29) 06/25/22 21:14 Anion Gap 14.9 (5-19) 06/25/22 21:14 BUN 8 mg/dL (6-20) 06/25/22 21:14 Creatinine 0.3 mg/dL (0.5-0.9) L 06/25/22 21:14 GFR Calculation 268.9 mL/min (90-130) H 06/25/22 21:14 Glucose 99 mg/dL (65-115) 06/25/22 21:14 Calculated Osmolality 288 mOsm/kg (285-295) 06/25/22 21:14 Calcium 10.5 mg/dL (8.5-10.5) 06/25/22 21:14 Total Bilirubin 0.3 mg/dL (0.15-1.2) 06/25/22 21:14 AST 14 U/L (0-32) 06/25/22 21:14 ALT 10 U/L (0-33) 06/25/22 21:14 Alkaline Phosphatase 55 U/L (35-105) 06/25/22 21:14 Total Protein 7.0 g/dL (6.6-8.7) 06/25/22 21:14 Albumin 4.2 g/dL (3.5-5.2) 06/25/22 21:14 Globulin 2.8 g/dL (1.3-4.6) 06/25/22 21:14 Urine Color Yellow (Yellow) 06/25/22 20:30 Urine Appearance Clear (CLEAR) 06/25/22 20:30 Urine pH 6 (5-7) 06/25/22 20:30 Ur Specific [place] 1.020 (1.005-1.030) 06/25/22 20:30 Urine Protein Neg (Negative) 06/25/22 20:30 Urine Glucose (UA) Norm (Normal) 06/25/22 20:30 Urine Ketones Negative (Negative) 06/25/22 20:30 Urine Blood Neg (Negative) 06/25/22 20:30 Urine Nitrate Negative (Negative) 06/25/22 20:30 Urine Bilirubin Neg (Negative) 06/25/22 20:30 Urine Urobilinogen Neg mg/dL (Negative) 06/25/22 20:30 Ur Leukocyte Esterase Trace (Negative) H 06/25/22 20:30 Urine RBC 0-4 /hpf (0-2) H 06/25/22 20:30 Urine WBC 5-10 /hpf (0-5) H 06/25/22 20:30 Ur Squamous Epith Cells 15-25 /hpf (0-5) H 06/25/22 20:30 Amorphous Sediment Trace /hpf 06/25/22 20:30 Urine Bacteria Trace /hpf (NONE) 06/25/22 20:30 Urine Mucus 2+ /hpf 06/25/22 20:30 EKG Data EKG 1: EKG interpretation date: 06/25/22 Interpretation: Sinus rhythm, 72 bpm, no ST segment ovation depression seen. Discharge Plan Discharge Patient Disposition: Home Clinical Impression: Medication side effect Condition: Stable Prescriptions: No Action buspirone 10 mg tablet 10 mg PO BID fluoxetine 40 mg capsule 40 mg PO DAILY Discharge Orders: Discharge ED (Routine); Ordered 06/25/22 Ordered By: Theo Quinn Referrals: Tiago Grimaldo MD [Primary Care Provider] - Discharge Diet: Regular Discharge Activity: Resume usual activity Activity Restrictions/Additional Instructions: Follow-up with medical provider as directed in the next 5 to 7 days reevaluation. Continue taking all home medications as previously prescribed. Return to the ER or your medical provider if condition worsens. Please read and understand discharge instructions. Thank you for choosing [facility] for your healthcare needs today. Please realize this is an emergency room and that we are providing you with a medical screening exam and this may not be complete and all inclusive of all the testing and or work up that you may need to determine your ailment or severity of your illness. It is very important that you follow up as instructed or that you return to the Emergency Department should you have concerns or if your condition changes or worsens in any way. 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
[2022-06-25 21:14] VITALS: BP 115/65; PULSE 79; RESP 18; O2SAT 100
--- NOTE | 2022-06-25 21:15 | ECG_ITS ---
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
[2022-06-25 21:19] LABS: Basophils % 0.2 %; Eosinophils # 0.1 10^3/uL (0.0-0.8); Eosinophils % 0.9 %; Hemoglobin 11.6 g/dL (11.5-15.3); Lymphocytes # 1.3 10^3/uL (0.8-4.8); Lymphocytes % 23.4 %; Mean Corpuscular HGB Conc 33.1 g/dL (30.0-36.0); Mean Corpuscular Hemoglobin 29.4 pg (28.0-34.0); Mean Corpuscular Volume 88.6 fl (81-99); Mean Platelet Volume 10.5 fL (7.4-10.4); Monocytes # 0.5 10^3/uL (0.2-0.9); Monocytes % 8.7 %; Neutrophils % 66.4 %; Nucleated Red Blood Cells % 0 %; Platelet Count 206 10^3/cmm (130-400); Red Blood Count 3.95 10^6/uL (4.1-5.3); Red Cell Distribution Width 12.7 % (12.1-15.1); White Blood Count 5.4 10^3/uL (4.0-10.0)
[2022-06-25 21:49] LABS: Add Urine Microscopic? YES; Bilirubin Urine Neg (Negative); Blood Urine Neg (Negative); Glucose Urine UA Norm (Normal); Ketones Urine Negative (Negative); Leukocyte Esterase Urine Trace (Negative); Nitrate Urine Negative (Negative); Protein Urine Neg (Negative); Urine Appearance Clear (CLEAR); Urine Color Yellow (Yellow); Urobilinogen Urine Neg (Negative); pH Urine 6 (5-7)
[2022-06-25 21:50] LABS: Add Urine Culture? No; Amorphous Sediment Urine TRACE /hpf; Bacteria Urine TRACE /hpf; Mucus Urine 2+ /hpf; RBC Urine 0-4 /hpf (0-2); Squamous Epithelial Cell Urine 15-25 /hpf (0-5)
[2022-06-25 21:57] LABS: Alanine Aminotransferase 10 U/L (0-33); Albumin Level 4.2 g/dL (3.5-5.2); Alkaline Phosphatase 55 U/L (35-105); Anion Gap 14.9 (5-19); Aspartate Amino Transferase 14 U/L (0-32); Blood Urea Nitrogen 8 mg/dL (6-20); Calcium 10.5 mg/dL (8.5-10.5); Carbon Dioxide 25 mmol/L (22-29); Chloride 104 mmol/L (98-107); Globulin 2.8 g/dL (1.3-4.6); Glomerular Filtration Rate 268.9 mL/min (90-130); Glucose 99 mg/dL (65-115); Osmolality Calculated 288 mOsm/kg (285-295); Potassium 3.9 mmol/L (3.5-5.1); Sodium 140 mmol/L (136-145); Total Bilirubin 0.3 mg/dL (0.15-1.2)
[2022-06-25 22:41] VITALS: RESP 16; O2SAT 100
== END 2022-06-25 22:14 | disposition home or self-care (01) ==
PROVIDERS: Emergency Provider Physician Assistant; PCP Family Medicine
DX: O99.891 Other specified diseases and conditions complicating pregnancy (principal); R42 Dizziness and giddiness; T37.3X5A Adverse effect of other antiprotozoal drugs, initial encounter; Z3A.12 12 weeks gestation of pregnancy
CPT/HCPCS: 80053; 81001; 85025; 93005; 99284

== ENCOUNTER 2022-08-12 10:55 | Outpatient (CLI) | payer MEDICAID, SELFPAY ==
--- NOTE | 2022-08-12 | US_ITS ---
WS: [id number] OBSTETRICAL ULTRASOUND COMPLETE HISTORY: ANATOMY SCAN COMPARISON: 05/12/2022 Single intrauterine gestation in variable presentation. Cervix is Closed and normal length. Cervical length is 4.3 cm. Normal amount of amniotic fluid surrounds the fetus. Placenta: Anterior, no previa or abruption. Placenta grade 1 Heart: 147 BPM. Four chambers are identified. Suboptimal evaluation of the outflow tracts. Anatomy: Intracranial structures and spine are normal. kidneys, stomach and urinary bladd er are unremarkable. Abdominal wall, three-vessel cord and cord insertion site are normal. 4 extremities are present. profile: Unremarkable. Gender: Female. measurements: BPD = 4.4 cm = 19w2d HC = 17.4 cm = 20w0d AC = 14.9 cm = 20w1d FL = 3.2 cm = 19w6d EFW: 327 g. Biometry is internally concordant. AGA by ultrasound: 19w6d SHENA by ultrasound: 12/31/2022 US/US OB >= 14 weeks fetus [id number] IMPRESSION: 1. Single intrauterine gestation of 19w6d with an SHENA of 12/31/2022. 2. Limited visualization of the heart. 4 chambers are identified. Suboptimal e valuation of the outflow tracts. Otherwise anatomy is normal. Consider short-te rm reevaluation of the cardiac outflow tracts.
== END 2022-08-12 10:56 | disposition home or self-care (01) ==
LOC: RAD 10:56
PROVIDERS: PCP Family Medicine; Visit Provider Family Medicine
DX: Z36.89 Encounter for other specified antenatal screening (principal); Z3A.19 19 weeks gestation of pregnancy
CPT/HCPCS: 76805

== ENCOUNTER 2022-09-09 13:00 | Outpatient (CLI) | payer MEDICAID, SELFPAY ==
--- NOTE | 2022-09-09 13:08 | US_ITS ---
WS: [id number] OB ultrasound, 09/09/2022 Clinical Data: OTHER SCREENING FOLLOW UP Comparison: OB ultrasound, 08/12/2022 Findings: There is a single intrauterine in the vertex presentation. The placenta is Anterior and gra de 0. There is a normal amount of amnionic fluid. The cervical length is 4.60 cm and is closed. The f etal heart rate is 133 beats per minute. This short-term follow-up was used to evaluate the RVOT and LVOT. No definite abnormalities of the RV OT or LVOT were seen. US/[place] [id number] Impression: 1. Single intrauterine in vertex presentation. 2. No definite abnormalities of the RVOT or LVOT were seen. 3. heart rate 133 beats per minute.
== END 2022-09-09 13:01 | disposition home or self-care (01) ==
LOC: RAD 13:00
PROVIDERS: PCP Family Medicine; Visit Provider Family Medicine
DX: Z36.2 Encounter for other antenatal screening follow-up (principal)
CPT/HCPCS: 76816

== ENCOUNTER 2022-12-16 17:25 | Outpatient (CLI) | payer MEDICAID, SELFPAY ==
[2022-12-16 17:29] VITALS: RESP 18
[2022-12-16 17:31] VITALS: BP 120/74; PULSE 96
[2022-12-16 17:46] VITALS: BP 113/72; PULSE 83
[2022-12-16 17:57] VITALS: RESP 18
== END 2022-12-16 18:00 | disposition home or self-care (01) ==
LOC: OPOB 17:26 → OBGYN 17:27
PROVIDERS: PCP Family Medicine; Visit Provider Family Medicine
DX: O36.8190 Decreased fetal movements, unspecified trimester, not applicable or unspecified (principal); Z3A.00 Weeks of gestation of pregnancy not specified
CPT/HCPCS: 59025; 99211

== ENCOUNTER 2022-12-22 18:35 | Outpatient (CLI) | payer MEDICAID, SELFPAY ==
[2022-12-22 18:46] VITALS: BMI 35.0
[2022-12-22 18:52] VITALS: BP 130/68; PULSE 100
[2022-12-22 19:05] VITALS: BP 139/67; PULSE 84
[2022-12-22 19:14] VITALS: BP 114/73; PULSE 82
[2022-12-22 19:24] VITALS: BP 117/73; PULSE 71
== END 2022-12-22 19:30 | disposition home or self-care (01) ==
LOC: OPOB 18:39 → OBGYN 18:40
PROVIDERS: PCP Family Medicine; Visit Provider Family Medicine
DX: O26.899 Other specified pregnancy related conditions, unspecified trimester (principal); Z3A.00 Weeks of gestation of pregnancy not specified; N89.8 Other specified noninflammatory disorders of vagina
CPT/HCPCS: 59025; 99211

== ENCOUNTER 2022-12-29 13:25 | Inpatient (IN) | payer MEDICAID, SELFPAY ==
[2022-12-28] VITALS (10 sets, daily range): BP systolic 98–124; BP diastolic 57–75; PULSE 67–85; RESP 18; TEMP 36.3
[2022-12-28] MEDS: miSOPROStol 100 mcg tablet 25 MCG VAGINAL (22:12)
--- NOTE | 2022-12-28 22:13 | P.HP_ITS ---
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 Hx depression/anxiety, bipolar disorder, hx breast reduction Nov 2021. Presenting for elective induction of labor. Reports some nausea starting yesterday evening, denies LOF, contractions, vaginal bleeding, reports good movement. care good and starting in 1st trimester. Significant for anemia treated with oral iron supplementation. Anatomy scan complete and wnl apart from poorly visualized outflow tracts.- repeat wnl Present Details : 2 Para: 1 Labs Blood type OB HPI: A (+) positive Rubella: Immune RPR: Negative GBS: Negative HBsAG: Negative Other Lab Information: HIV negative Hep C ab negative Initial H/H 11.9/35.2 3rd trimester H/H 10.4/29.6 Failed 1 hr GTT 140 Passed 3hr GTT 78/119/85/60 Pap smear ASCUS +HPV with normal colposcopy Review of Systems Const: Denies: fever(s) or chills Card: Denies: chest pain or palpitations Resp: Denies: dyspnea or productive cough : Denies: dysuria, hematuria or vaginal bleeding Psych: Denies: suicidal ideation Medications/Allergies Home Medications Medication Instructions Recorded Confirmed Last Taken Type buspirone 10 mg tablet 10 mg PO BID 02/12/21 12/22/22 12/22/22 History fluoxetine 40 mg capsule 40 mg PO DAILY 02/12/21 12/22/22 12/22/22 History Allergies Allergy/AdvReac Type Severity Reaction Status Date / Time No Known Allergies Allergy Verified 12/22/22 19:20 PFSH 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 PFSH: Medical History Iron deficiency anemia Surgical History No history of previous surgery Family History Grandfather Hypertension maternal Heart disease maternal Hyperlipidemia maternal Lung cancer maternal Mother Diabetes Stroke Grandmother Stroke paternal Thyroid condition paternal Breast cancer maternal great Family/Other Breast cancer maternal great aunt Ovarian cancer maternal great aunt Uterine cancer maternal great aunt, paternal aunt Social History Smoking and tobacco status: never smoked Alcohol intake: never Other Female Reproductive History: Hx Age of Menarche: 14 Duration of menses: 3-5 days (3 days) Cycle Length: 26-35 days Menstrual flow: normal/abnormal: light History History History 2 Term 1 0 Miscarriages/Ectopic 0 Living Children 1 Vitals/I&O/Wt Last Vital Signs Temp 97.3 F L 12/28/22 21:42 Pulse 75 12/28/22 22:08 BP 122/73 12/28/22 22:08 O2 Del Method 12/28/22 21:23 Weight last 48 hrs Weight 224 lb Physical Exam Const: COMMON NORMALS: no acute distress, healthy appearing and alert Resp: COMMON NORMALS: normal respiratory effort, No use of accessory muscles and clear to auscultation bilaterally Cardio: COMMON NORMALS: regular rate, regular rhythm, S1 normal heart sound present, S2 normal heart sound present and No murmurs present (Cardio) : OTHER: gravid Extremity: NARRATIVE EXTREMITY EXAM: trace LE edema pitting bilaterally Data 12/28/22 21:20 A&P Assessment and plan (1) Encounter for elective induction of labor: Admit for induction of labor. Has received 2 doses of cytotec with progression from 1/50/-3 to 2/75/-3. Plan for light snack followed by NPO and to start moderate/intermediate dose of pitocin following. Category 1 FHT thus far. Continuous EFM once pitocin initiated. May have epidural when desired. Fentanyl protocol prior to epidural. (2) Anemia: On oral iron supplementation (3) Depression: Controlled on fluoxetine, buspar- plan to continue . Attestations Medical Necessity Statement*: [facility] stay will require greater than 2 midnights for routine labor, delivery, and care. Coding Level of Care Code Acute Code for Chg Fwd Diagnoses Encounter for elective induction of labor Z34.90 Anemia D64.9 Depression F32.A
[2022-12-28 22:17] LABS: Basophils % 0.3 %; Eosinophils # 0.1 10^3/uL (0.0-0.8); Eosinophils % 0.7 %; Hematocrit 33.1 % (37.0-47.0); Hemoglobin 10.6 g/dL (11.5-15.3); Lymphocytes # 2.4 10^3/uL (0.8-4.8); Lymphocytes % 21.6 %; Mean Corpuscular Hemoglobin 27.5 pg (28.0-34.0); Mean Corpuscular Volume 85.8 fl (81-99); Mean Platelet Volume 11.6 fL (7.4-10.4); Monocytes # 0.7 10^3/uL (0.2-0.9); Neutrophils # 7.73 10^3/uL (1.8-7.7); Neutrophils % 70.6 %; Nucleated Red Blood Cells % 0 %; Platelet Count 224 10^3/cmm (130-400); Red Blood Count 3.86 10^6/uL (4.1-5.3); Red Cell Distribution Width 13.8 % (12.1-15.1)
[2022-12-29] VITALS (169 sets, daily range): BP systolic 95–155; BP diastolic 52–92; PULSE 58–196; RESP 16–18; TEMP 36.2–36.8; O2SAT 81–100
[2022-12-29] MEDS: miSOPROStol 100 mcg tablet 25 MCG VAGINAL (02:17)
[2022-12-29] MEDS: alum-mag-hydroxide-sime 30 mL UDC PO ×2 (03:03→20:04)
--- NOTE | 2022-12-29 05:54 | PC.NURSE ---
Patient has generalized lesions (scars) on upper arms, lower arms, wrist, and thighs from previous history of self harm according to the patient. She said the behavior occurred 4 years go she sought out treatment for her mental health and was prescribed medication for severe depression. She reports no feelings of depression at this time or wanting to self harm.
[2022-12-29] MEDS: oxytocin 30 UNIT/500 ML BAG IV (09:47)
[2022-12-29] MEDS: dextrose 5%-lactated ringers 1,000 ML 125 ML IV (09:51)
[2022-12-29] MEDS: fentaNYL 50 mcg/mL INJ 2mL IVP ×2 (12:11→13:30)
[2022-12-29] MEDS: lactated ringers 1,000 ML 999 ML IV ×2 (13:20→14:34)
--- NOTE | 2022-12-29 15:34 | ANES.PREANE2 ---
Pre-Anesthetic Assessment Height/Weight: Height 1.7 m Weight 101.605 kg Temp Pulse Resp BP Pulse Ox O2 Del Method 97.2 F L 70 17 122/59 89 L 12/29/22 11:06 12/29/22 15:31 12/29/22 13:30 12/29/22 15:31 12/29/22 15:30 12/28/22 21:23 Preop Diagnosis: term pregnency ED 12/25 Familial anesthetic complications: none Was Beta Marv taken within 24 hours: N/A Was Clonidine taken within 24 hours: N/A Social No alcohol and No tobacco Exam alert, oriented x 3, clear to auscultation bilaterally and regular rate & rhythm Airway Submandibular: within normal limits Cervical ROM: within normal limits Mallampati: Class II Dentition: chipped CV/HEM Anemia Neuropsych Anxiety and Depression Anesthetic Plan ASA status: 2 Anesthesia: Regional (specify below) (Labor epidural) Medications/Allergies Home Medications Medication Instructions Recorded Confirmed Last Taken Type buspirone 10 mg tablet 10 mg PO BID 02/12/21 12/22/22 12/22/22 History fluoxetine 40 mg capsule 40 mg PO DAILY 02/12/21 12/22/22 12/22/22 History Allergies Allergy/AdvReac Type Severity Reaction Status Date / Time No Known Allergies Allergy Verified 12/22/22 19:20 Current Medications Generic Name Dose Route Start Last Admin Trade Name Freq PRN Reason Stop Dose Admin Al Hydrox/Mg Hydrox/Simethicone 30 ml 12/28/22 21:49 12/29/22 03:03 Prii-Uqf-Lbawgoyui-Valentín 30 Ml Udc PO 30 ml Q4H PRN Administration INDIGESTION Fentanyl 25 - 100 mcg 12/28/22 21:49 12/29/22 13:30 Fentanyl 50 Mcg/Ml Inj 2ml IVP 50 mcg Q1H PRN Administration SEVERE PAIN Dextrose/Lactated Ringer's 1,000 mls @ 125 mls/hr 12/28/22 22:00 12/29/22 13:21 Dextrose 5%-Lactated Ringers IV 0 mls/hr .Q8H LEE Infusion Oxytocin 30 unit in 500 mls @ 1 mls/hr 12/29/22 09:00 12/29/22 11:50 Pitocin IV 4 milliunit/min .Q24H LEE 4 mls/hr Titration Protocol 1 MILLIUNIT/MIN Lactated Ringer's 1,000 mls @ 999 mls/hr 12/29/22 12:58 12/29/22 14:34 Lactated Ringers IV 999 mls/hr .Q1H1M PRN Administration See label comments PFSH Anesthesia Medical History Iron deficiency anemia Surgical History No history of previous surgery Family History Grandfather Hypertension maternal Heart disease maternal Hyperlipidemia maternal Lung cancer maternal Mother Diabetes Stroke Grandmother Stroke paternal Thyroid condition paternal Breast cancer maternal great Family/Other Breast cancer maternal great aunt Ovarian cancer maternal great aunt Uterine cancer maternal great aunt, paternal aunt Social History Smoking and tobacco status: never smoked Alcohol intake: never Female Reproductive History : 2 Data Anesthesia 12/28/22 21:20 Short CBC 12/28/22 Range/Units 21:20 WBC 11.0 H (4.0-10.0) 10^3/uL Hgb 10.6 L (11.5-15.3) g/dL Hct 33.1 L (37.0-47.0) % MCV 85.8 (81-99) fl Plt Count 224 (130-400) 10^3/cmm Neut % (Auto) 70.6 % Neut # (Auto) 7.73 H (1.8-7.7) 10^3/uL Cardiac Studies: No Data to Display Anesthesia Procedures Epidural Time Out Performed: Yes Consents Signed: Procedure Consent Consent: requested by attending/covering physician, from patient, risks and benefits reviewed and patient agrees to proceed Lumbar Level: L4-L5 Epidural position: sitting Epidural procedure: sterile prep of area, 1% lidocaine to numb the area, 18 g needle, neg for paresthesia, test dose given, 1.5% xylocaine 1:200k epi, 0.2% Ropivacaine bolus ml (5), placed PCEA, no systemic response, sterile dressing applied and 0.2% Ropiavacaine @ mls/hr (13) Additional Comments: TATUM at 4cm, cath at 9cm...Attempted epidural at L3-4 without success, moved to L4-5 with immediate success
--- NOTE | 2022-12-29 19:40 | PM.DELIVERY ---
Delivery Note: Date of delivery: December 29, 2022 Pre-delivery diagnoses: Term Post-delivery diagnoses: Delivery of term viable male Procedure: Spontaneous Vaginal Delivery Delivering Physician: Susan Miramontes DO Estimated blood loss (mL): 200 Pre-Delivery Course: Admitted for elective induction of labor on 12/28/22. Given 2 doses cytotec q4hr and progressed to 2/75/-3. Started on intermediate dose pitocin and patient gradually changed appropriately to complete. Delivery: Patient progressed to complete. Patient placed in lithotomy position. Patient pushed with adequate effort. Head delivered in cull in RAY position, nuchal cord was present and delivered through. SROM at this time with light meconium fluid. Shoulders and rest of body delivered without difficulty with adequate epidural anesthesia. Mouth and nares bulb suctioned. Infant placed on maternal abdomen. Cord clamped and cut after 1 minute delay. Placenta spontaneously delivered and intact with 3-vessel cord. Pitocin started. Fundus was noted to be firm with massage. The vagina and cervix were inspected and midline 2nd degree laceration was noted. Repaired with 3-0 Vicryl and noted to be hemostatic following. Fundus was again noted to be firm. Male term born at 1906 with 8/9 weighing 8lb 10oz and measuring 21.5 in length Placenta noted to be intact with centrally inserted umbilical cord and 3 vessel cord. Complications: Maternal none Infant none History History History 2 Term 1 0 Miscarriages/Ectopic 0 Living Children 1 Coding Level of Care Code Acute Code for Chg Fwd
[2022-12-29] MEDS: ibuprofen 800 mg tablet PO (20:04)
[2022-12-29] MEDS: miSOPROStol 200 mcg Tablet 800 MCG PR (20:58)
[2022-12-29] MEDS: oxytocin 30 UNIT/500 ML BAG 999 UNIT IV (21:00)
[2022-12-29 21:33] LABS: Basophils % 0.2 %; Hematocrit 31.9 % (37.0-47.0); Hemoglobin 10.2 g/dL (11.5-15.3); Lymphocytes # 1.7 10^3/uL (0.8-4.8); Lymphocytes % 9.5 %; Mean Corpuscular Hemoglobin 27.6 pg (28.0-34.0); Mean Corpuscular Volume 86.4 fl (81-99); Mean Platelet Volume 11.2 fL (7.4-10.4); Monocytes # 0.9 10^3/uL (0.2-0.9); Monocytes % 4.8 %; Neutrophils # 14.87 10^3/uL (1.8-7.7); Neutrophils % 84.8 %; Nucleated Red Blood Cells % 0 %; Platelet Count 208 10^3/cmm (130-400); Red Blood Count 3.69 10^6/uL (4.1-5.3); Red Cell Distribution Width 13.9 % (12.1-15.1); White Blood Count 17.6 10^3/uL (4.0-10.0)
[2022-12-29] MEDS: carboprost tromethamine 250 mcg/mL Amp IM (21:35)
--- NOTE | 2022-12-29 21:45 | P.PN_ITS ---
PSYCHOLOGICAL EXAMINER Subjective Subjective: Interval history: I was called at 8:57pm by RN reporting patient was having a post- hemorrhage. Reports blood soaking sheets and tuck pad underneath patient. Re ports BP 140s/60s and HR 90s. Patient without symptoms at this time. I requested an additional bag of pitocin and cytotec 800mcg and began en route. On arrival patient was sitting up in bed and denying any symptoms. On laying back down in bed patient did report some dizziness and shakes. Denied any other symptoms. Labor: Station: 0 Amniotic Membrane Status: Bulging Monitor Mode: External Contraction Pattern: Regular Vitals/I&O/Wt Last Vital Signs Temp 98.2 F 12/29/22 18:54 Pulse 80 12/29/22 21:39 Resp 18 12/29/22 19:40 BP 141/80 12/29/22 21:39 Pulse Ox 100 12/29/22 21:37 O2 Del Method 12/28/22 21:23 12/29/22 12/29/22 12/29/22 06:59 14:59 22:59 Intake Total 1440.884 / 1440.884 Balance 1440.884 / 1440.884 Weight last 48 hrs Weight 224 lb Physical Exam Const: COMMON NORMALS: no acute distress, healthy appearing and alert Resp: COMMON NORMALS: normal respiratory effort, No use of accessory muscles and clear to auscultation bilaterally AUSCULTATION: clear to auscultation bilaterally Cardio: COMMON NORMALS: regular rate, regular rhythm, S1 normal heart sound present, S2 normal heart sound present and No murmurs present (Cardio) RATE: regular rate RHYTHM: regular rhythm HEART SOUNDS: S1 normal heart sound present and S2 normal heart sound present : OTHER: progression of exam detailed in A&P Extremity: NARRATIVE EXTREMITY EXAM: trace LE edema pitting bilaterally Neuro: SENSORIUM/ORIENTATION: Yes alert Urinary Catheter Management: Colón Latex: Cath Placed During This Visit: yes Reason for Continuing Indwelling Catheter: Required Immobilization for Trauma or Surgery or Anesthesia Urinary Catheter Date of Insertion: 12/29/22 Urinary Catheter Time of Insertion: 15:48 Data 12/29/22 21:25 A&P Assessment and plan (1) hemorrhage: Given cytotec 800mcg [place], additional 30u pitocin. Patient still with some epidural analgesia present. Lower uterine segment swept free of clots and few pieces of retained membrane removed. 2nd IV started and CBC drawn. Following with small trickle on fundal massage- fundus remained firm. Given 250mcg hemabate IM. Following noted to have firm fundus continued with scant blood on fundal massage. CBC resulted with Hgb 10.2 from 10.6 on admission. Plan for CBC at 6am. Fundal massage q 15 min x2 then q30 min. Attestations Medical Necessity Statement*: Melida Gonzalez [place]'s hospital stay will require greater than 2 midnights for labor, delivery, and care. Coding Level of Care Code Acute Code for Chg Fwd Diagnoses hemorrhage O72.1
[2022-12-29] MEDS: diphenoxylate/atropine Tablet 1 TAB PO (21:55)
--- NOTE | 2022-12-29 22:38 | PC.NURSE ---
This RN went into room to do fundal message, pt stated she felt a gush. After pulling back covers a large amout of blood with clots was noted. This RN did fundal message then went to get charge nurse, Sabi RN. Sabi enters room and expresses more clots with fundal message, post hemorrhage protocol was initiated. Sabi remained at bedside doing continuous fundal message. I called Dr. Miramontes at 2056 with update on pt regarding large amount of bleeding and vital signs. Orders received to hang second bag of pitocin and bolus it and cytotec [address] Miramontes said she was on her way. Pitocin was hung and Sabi administered cytotec. Pads, sheets, and blankets were weighed.
--- NOTE | 2022-12-29 23:37 | PC.NURSE ---
This RN scanned [employer] because it was not scanned on previous shift. I changed the time according to the pump start time on the labor and delivery summary sheet that was given to me during bedside report.
[2022-12-29] MEDS: benzocaine-menthol 78 gm Canister 1 SPRAY TOPICAL (23:43)
[2022-12-30] VITALS (12 sets, daily range): BP systolic 97–130; BP diastolic 50–71; PULSE 67–80; RESP 16
[2022-12-30 06:27] LABS: Basophils % 0.3 %; Eosinophils # 0.1 10^3/uL (0.0-0.8); Eosinophils % 0.3 %; Hematocrit 27.1 % (37.0-47.0); Hemoglobin 8.6 g/dL (11.5-15.3); Lymphocytes # 2.5 10^3/uL (0.8-4.8); Lymphocytes % 15.9 %; Mean Corpuscular HGB Conc 31.7 g/dL (30.0-36.0); Mean Corpuscular Hemoglobin 27.1 pg (28.0-34.0); Mean Corpuscular Volume 85.5 fl (81-99); Monocytes # 1.1 10^3/uL (0.2-0.9); Monocytes % 7.3 %; Neutrophils # 11.69 10^3/uL (1.8-7.7); Neutrophils % 75.4 %; Nucleated Red Blood Cells % 0 %; Platelet Count 188 10^3/cmm (130-400); Red Blood Count 3.17 10^6/uL (4.1-5.3); Red Cell Distribution Width 13.9 % (12.1-15.1); White Blood Count 15.5 10^3/uL (4.0-10.0)
--- NOTE | 2022-12-30 07:42 | PM.OBGYPN ---
CAMPUS WELLNESS COORDINATOR Subjective Subjective: Interval history: Doing well overnight. Was able to get some sleep. Has not gotten up much to move around yet. Was still nauseous last night and so hasn't eaten anything yet. Denies leg pain or swelling. Vaginal bleeding has been decreasing and is slightly more than her usual period but is less than she remembers with her prior delivery. Some tenderness but pain is controlled. Afternoon rounds: Bleeding has been scant all day, no clots. Has gotten up and showered. Has noticed easy fatigability. Denies SOA, chest pain. Was able to eat breakfast, lunch, and eating dinner without issue. Has not had any further diarrhea. Urinating without difficulty. Labor: Station: 0 Amniotic Membrane Status: Bulging Monitor Mode: External Contraction Pattern: Regular Vitals/I&O/Wt Last Vital Signs Temp 98.2 F 12/29/22 18:54 Pulse 78 12/30/22 07:33 Resp 18 12/29/22 19:40 BP 104/53 12/30/22 07:33 Pulse Ox 97 12/29/22 22:52 O2 Del Method 12/28/22 21:23 12/29/22 12/30/22 12/30/22 22:59 06:59 14:59 Intake Total 496.616 / 4744.585 2879.0 / 3581.500 Output Total 250 / 250 200 / 450 Balance 246.616 / 7626.344 4849.0 / 3131.500 Weight last 48 hrs Weight 224 lb Physical Exam Const: COMMON NORMALS: no acute distress, healthy appearing and alert Resp: COMMON NORMALS: normal respiratory effort, No use of accessory muscles and clear to auscultation bilaterally AUSCULTATION: clear to auscultation bilaterally Cardio: COMMON NORMALS: regular rate, regular rhythm, S1 normal heart sound present, S2 normal heart sound present and No murmurs present (Cardio) RATE: regular rate RHYTHM: regular rhythm HEART SOUNDS: S1 normal heart sound present and S2 normal heart sound present : OTHER: Uterine fundus firm and at the level of the umbilicus Extremity: NARRATIVE EXTREMITY EXAM: trace LE edema pitting bilaterally, calves NTTP bilaterally without erythema or warmth Neuro: SENSORIUM/ORIENTATION: Yes alert Urinary Catheter Management: Colón Latex: Cath Placed During This Visit: yes, but has since been removed by the nurse Reason for Continuing Indwelling Catheter: Required Immobilization for Trauma or Surgery or Anesthesia Urinary Catheter Date of Insertion: 12/29/22 Urinary Catheter Time of Insertion: 15:48 Date Urinary Catheter Removed: 12/29/22 Time Urinary Catheter Discontinued: 19:03 Data 12/30/22 06:15 A&P Assessment and plan (1) Spontaneous vaginal delivery: PPD#1 s/p en caul with PPH 2 hours after delivery. Bleeding now minimal. VSS. Encourage ambulation, normal diet. May shower. Repeat CBC in AM. Anticipate discharge home tomorrow. (2) hemorrhage: Total EBL+QBL 940mL. Hgb 8.6 from 10.2 at time of hemorrhage. Given cytotec 800mcg [place], additional 30u pitocin, 250mcg hemabate IM. Vaginal bleeding minimal throughout the day- continue monitoring and report any increased bleeding or clots. (3) Depression: Continue buspirone and fluoxetine. (4) Anemia: On iron supplementation. Attestations Medical Necessity Statement*: Melida Gonzalez [place]'s hospital stay will require greater than 2 midnights for labor, delivery, and care. Coding Level of Care Code Acute Code for Chg Fwd Diagnoses Spontaneous vaginal delivery O80 hemorrhage O72.1 Depression F32.A Anemia D64.9
[2022-12-30] MEDS: prenatal vitamin Capsule 1 CAP PO (09:29)
[2022-12-30] MEDS: ibuprofen 800 mg tablet PO ×3 (09:30→21:30)
[2022-12-30] MEDS: BuSPIRONE 10 mg Tablet PO ×2 (09:30→21:30)
[2022-12-30] MEDS: ferrous sulfate EC 325 mg Tablet PO (09:30)
[2022-12-30] MEDS: fluoxetine 20 mg Capsule 40 MG PO (09:30)
[2022-12-30] MEDS: docusate sodium 100 mg Capsule PO (21:30)
[2022-12-31 03:52] VITALS: BP 93/46; PULSE 60
[2022-12-31 05:40] LABS: Hematocrit 25.8 % (37.0-47.0); Mean Corpuscular Hemoglobin 27.1 pg (28.0-34.0); Mean Corpuscular Volume 87.5 fl (81-99); Mean Platelet Volume 10.9 fL (7.4-10.4); Platelet Count 178 10^3/cmm (130-400); Red Blood Count 2.95 10^6/uL (4.1-5.3); Red Cell Distribution Width 14.3 % (12.1-15.1); White Blood Count 10.1 10^3/uL (4.0-10.0)
[2022-12-31 07:00] VITALS: TEMP 36.6
--- NOTE | 2022-12-31 07:15 | PM.OBGYDC ---
Discharge Providers CHRONOMETER TESTER Date of Admission: 12/29/22 13:25 Date of Discharge: 12/31/22 Attending Provider at Admission: Susan Miramontes DO Attending Provider at Discharge: Susan Miramontes DO Primary Care Provider: Tiago Grimaldo MD Diagnoses at Discharge Discharge Diagnosis (1) Spontaneous vaginal delivery: Status: Acute (2) hemorrhage: Status: Acute (3) Depression: Status: Acute (4) Anemia: Status: Acute Reason for Visit Reason for Visit: induction of labor Hospital Course Hospital Course Pre-Delivery Course:?? Admitted for elective induction of labor on 12/28/22. Given 2 doses cytotec q4hr and progressed to /-3. Started on intermediate dose pitocin and patient gradually changed appropriately to complete. Delivery:?? Patient progressed to complete. Patient placed in lithotomy position. Patient pushed with adequate effort. Head delivered en caul in RAY position, nuchal cord was present and delivered through. SROM at this time with light meconium fluid. Shoulders and rest of body delivered without difficulty with adequate epidural anesthesia. Mouth and nares bulb suctioned. placed on maternal abdomen. Cord clamped and cut after 1 minute delay.? Placenta spontaneously delivered and intact with 3-vessel cord. Pitocin started. Fundus was noted to be firm with massage. The vagina and cervix were inspected and midline 2nd degree laceration was noted. Repaired with 3-0 Vicryl and noted to be hemostatic following. Fundus was again noted to be firm. Male term born at 1907 with 8/9 weighing 8lb 10oz and measuring 21.5 in length Placenta noted to be intact with centrally inserted umbilical cord and 3 vessel cord. Complications: Maternal none ? none Post-Delivery:Patient underwent on 12/29/22. course was complicated by hemorrhage with EBL/QBL 940mL total. Required additional 30u pitocin, 800mcg cytotec, and 250mcg hemabate. VSS throughout hemorrhage. Following hemorrhage vaginal bleeding decreased to thin lochia and intermittent spotting on day of discharge. Hemoglobin decreased from 10.6 on admission to 8.0 on day of discharge. She was continued on daily iron supplementation and was without s/sx anemia apart from fatigue on day of discharge. Patient ambulated well with pain well controlled on oral medications. She was continued on her home medications for depression and anxiety. Following delivery patient ambulated well, tolerated a normal diet without nausea or vomiting. She is bottle feeding formula, no leg/calf pain, no calf/leg swelling, normal urination, passing gas and normal bowel movements. Follow-up planned for 2 and 6 weeks . Warning signs for endometritis, pre-eclampsia, DVT/PE, mastitis were reviewed, discussed additional warning signs including increased vaginal bleeding, worsening abdominal pain. Pelvic rest and activity precautions reviewed as well. She is discharged on 12/31/22 in stable condition. Information Peripartum Data: Infant Delivery Method: Vaginal Physical Exam Const: COMMON NORMALS: no acute distress, healthy appearing and alert Resp: COMMON NORMALS: normal respiratory effort, No use of accessory muscles and clear to auscultation bilaterally AUSCULTATION: clear to auscultation bilaterally Cardio: COMMON NORMALS: regular rate, regular rhythm, S1 normal heart sound present, S2 normal heart sound present and No murmurs present (Cardio) RATE: regular rate RHYTHM: regular rhythm HEART SOUNDS: S1 normal heart sound present and S2 normal heart sound present : OTHER: Uterine fundus firm and at the level of the umbilicus Extremity: NARRATIVE EXTREMITY EXAM: trace LE edema pitting bilaterally, calves NTTP bilaterally without erythema or warmth Neuro: SENSORIUM/ORIENTATION: Yes alert Urinary Catheter Management: Colón Latex: Cath Placed During This Visit: yes, but has since been removed by the nurse Reason for Continuing Indwelling Catheter: Required Immobilization for Trauma or Surgery or Anesthesia Urinary Catheter Date of Insertion: 12/29/22 Urinary Catheter Time of Insertion: 15:48 Date Urinary Catheter Removed: 12/29/22 Time Urinary Catheter Discontinued: 19:03 History History History 2 Term 2 0 Miscarriages/Ectopic 0 Living Children 2 Discharge Data Studies Completed and Pending Laboratory Results WBC 10.1 10^3/uL (4.0-10.0) H 12/31/22 05:35 RBC 2.95 10^6/uL (4.1-5.3) L 12/31/22 05:35 Hgb 8.0 g/dL (11.5-15.3) L 12/31/22 05:35 Hct 25.8 % (37.0-47.0) L 12/31/22 05:35 MCV 87.5 fl (81-99) 12/31/22 05:35 MCH 27.1 pg (28.0-34.0) L 12/31/22 05:35 MCHC 31.0 g/dL (30.0-36.0) 12/31/22 05:35 RDW 14.3 % (12.1-15.1) 12/31/22 05:35 Plt Count 178 10^3/cmm (130-400) 12/31/22 05:35 MPV 10.9 fL (7.4-10.4) H 12/31/22 05:35 Neut % (Auto) 75.4 % 12/30/22 06:15 Lymph % (Auto) 15.9 % 12/30/22 06:15 [place] % (Auto) 7.3 % 12/30/22 06:15 Eos % (Auto) 0.3 % 12/30/22 06:15 Baso % (Auto) 0.3 % 12/30/22 06:15 Neut # (Auto) 11.69 10^3/uL (1.8-7.7) H 12/30/22 06:15 Lymph # (Auto) 2.5 10^3/uL (0.8-4.8) 12/30/22 06:15 [place] # (Auto) 1.1 10^3/uL (0.2-0.9) H 12/30/22 06:15 Eos # (Auto) 0.1 10^3/uL (0.0-0.8) 12/30/22 06:15 Baso # (Auto) 0.0 10^3/uL (0.0-0.1) 12/30/22 06:15 Nucleated RBC % (auto) 0 % 12/30/22 06:15 Nucleated RBCs # 0.0 /100WBC 12/30/22 06:15 Vitals Last Vital Signs Temp 97.3 F L 12/31/22 10:04 Pulse 82 12/31/22 10:04 Resp 15 12/31/22 10:04 BP 114/58 12/31/22 10:04 Pulse Ox 97 12/29/22 22:52 O2 Del Method 12/28/22 21:23 Discharge Plan Discharge Patient Disposition: Home Condition: Stable Prescriptions: New ibuprofen 800 mg Tablet 800 mg PO TID Qty: 90 0RF docusate sodium 100 mg Capsule 100 mg PO BID Qty: 60 0RF ferrous sulfate 325 mg (65 mg iron) Tablet,Delayed Release (Dr/Ec) 325 mg PO DAILY Qty: 90 0RF -U 106.5-1 mg Capsule 1 cap PO DAILY Qty: 90 0RF Continued buspirone 10 mg tablet 10 mg PO BID fluoxetine 40 mg capsule 40 mg PO DAILY Discharge Orders: Discharge Order (Routine); Ordered 12/31/22 Ordered By: Susan Miramontes Discharge Diet: Regular Patient Instructions: Depression (DC), Perineal Care (DC), Caring for Your Breastfed Baby (DC), Caring for Your Formula Fed Baby (DC), Bleeding (DC), Preeclampsia and Eclampsia After Delivery (GEN), OB Food/Drug Interaction Guide, Opioid Safety Activity Restrictions/Additional Instructions: Pelvic rest for 6 weeks. Follow-up at [address] Miramontes Discharge Attestations CHRONOMETER TESTER Time Spent in Discharge Care*: greater than 30 min Coding Level of Care Code Acute Code for Chg Fwd Diagnoses Spontaneous vaginal delivery O80 hemorrhage O72.1 Depression F32.A Anemia D64.9
[2022-12-31 08:47] VITALS: RESP 15; TEMP 36.3
[2022-12-31 08:48] VITALS: BP 114/58; PULSE 82
[2022-12-31] MEDS: prenatal vitamin Capsule 1 CAP PO (08:48)
[2022-12-31] MEDS: docusate sodium 100 mg Capsule PO (08:48)
[2022-12-31] MEDS: BuSPIRONE 10 mg Tablet PO (08:48)
[2022-12-31] MEDS: ibuprofen 800 mg tablet PO (08:48)
[2022-12-31] MEDS: fluoxetine 20 mg Capsule 40 MG PO (08:49)
[2022-12-31] MEDS: ferrous sulfate EC 325 mg Tablet PO (08:49)
[2022-12-31 10:04] VITALS: BP 114/58; PULSE 82; RESP 15; TEMP 36.3
--- NOTE | 2023-01-04 11:39 | ANE.PACU2 ---
Inpatient post-anesthesia follow up: Airway intact: Yes Vital signs: Temperature 97.3 F Pulse Rate 82 Respiratory Rate 15 Blood Pressure 114/58 Pulse Oximetry 97 Oxygen Delivery Me thod Room Air Oxygen Flow Rate Fraction of Inspir ed Oxygen Hydration adequate: Yes Nausea and vomiting: No Pain level: 1 Mental status: Baseline
== END 2022-12-31 10:05 | disposition home or self-care (01) | DRG 806 ==
PROVIDERS: Admitting Provider Family Medicine; PCP Family Medicine; Visit Provider Family Medicine
DX: O99.02 Anemia complicating childbirth (principal); O72.2 Delayed and secondary postpartum hemorrhage; Z37.0 Single live birth; O99.344 Other mental disorders complicating childbirth; D64.9 Anemia, unspecified; O77.0 Labor and delivery complicated by meconium in amniotic fluid; O70.1 Second degree perineal laceration during delivery; Z3A.39 39 weeks gestation of pregnancy; F31.9 Bipolar disorder, unspecified; F41.9 Anxiety disorder, unspecified
CPT/HCPCS: 36415; 51702; 59025; 59409; 85025; 85027; 96372; 96374; 96376; J2590; J2795; J3010; J7120; J7121

== ENCOUNTER 2023-08-14 08:35 | Outpatient (CLI) | payer MEDICAID, SELFPAY ==
--- NOTE | 2023-08-14 08:41 | US_ITS ---
WS: [id number] LIMITED OBSTETRICAL ULTRASOUND HISTORY: ,UNSPECIFIED TRIMESTER COMPARISON: None available. Presentation: Cannot be determined on the imaging submitted. Cervix: Closed and normal length. Placenta: Posterior. Grade: 0 HEART: FHR of 153 BPM. measurements: BPD = 3.1 cm = 15w5d; HC = 11.8 cm = 15w6d; AC = 10.0 cm = 16w0d; FL = 1.9 cm = 15w4d; ROSA: 8.0 cm EFW: 136 g; AGA by ultrasound: 15w6d SHENA by ultrasound: 01/30/2024 IMPRESSION: 1. Single intrauterine gestation of 15 weeks 6 days with an EDC of 01/30/2024. 2. Recommend evaluation of the anatomy in 1 month. Anatomy cannot be evaluated at this time du e to early gestational age.
== END 2023-08-14 08:36 | disposition home or self-care (01) ==
LOC: RAD 08:35
PROVIDERS: PCP Family Medicine; Visit Provider Family Medicine
DX: Z34.01 Encounter for supervision of normal first pregnancy, first trimester (principal)
CPT/HCPCS: 76801

== ENCOUNTER 2023-09-18 08:53 | Outpatient (CLI) | payer MEDICAID, SELFPAY ==
--- NOTE | 2023-09-18 08:58 | USR_ITS ---
PROCEDURE INFORMATION: Exam: US , Limited Exam date and time: 09/18/2023 9:05 AM Age: 28 years old Clinical indication: Screening exam; Routine US, uterus; Additional info: Anatomy check LABS AND CLINICAL REPORTS: Last menstrual period start date: 04/27/2023 Gestational age (Established): 20 w 4 d Estimated due date (Established): 02/01/2024 TECHNIQUE: Imaging protocol: Real-time ultrasound of the maternal uterus with image documentation. Exam focused on the clinical indication. COMPARISON: US OB <= 14 weeks fetus [id number] 08/14/2023 8:50 AM FINDINGS: Gestation: Single live intrauterine gestation. heart rate: 157 bpm. presentation: Vertex. Placenta: Posterior grade 0 placenta, without previa. Amniotic fluid: Adequate amount of amniotic fluid. Amniotic fluid index: ROSA is 11.32 cm. ANATOMY: midline falx: Normal cerebellum: Normal lateral ventricles: Normal cisterna magna: Normal choroid plexus: Normal upper lip and nose: Normal heart four-chamber view, heart size and position: Normal right ventricular outflow tract: Normal left ventricular outflow tract: Normal kidneys: Normal stomach: Normal urinary bladder: Normal spine: Normal Umbilical cord insertion site into the abdomen: Normal Umbilical cord vessel number: Normal 3 vessel cord extremities: Normal. Normal external genitalia: Normal BIOMETRY: Gestational age (AUA): 20 w 5 d Estimated weight: 373 g Biparietal diameter (BPD): 4.77 cm. EGA (BPD) is 20 w 3 d Head circumference (HC): 18.4 cm. EGA (HC) is 20 w 5 d Abdominal circumference (AC): 15.5 cm. EGA (AC) is 20 w 5 d Femur length (FL): 3.43 cm. EGA (FL) is 20 w 6 d Cephalic Index (CI): 70.5 % HC/AC: 1.19 FL/HC: 18.6 % FL/AC: 22.1 % MATERNAL: Cervix: Unremarkable closed cervix measuring 4.4 cm in length. US/US OB >= 14 weeks fetus [id number] IMPRESSION: Single live intrauterine gestation with estimated age of 20 weeks 5 days and weight of 373 g.
== END 2023-09-18 08:54 | disposition home or self-care (01) ==
LOC: RAD 08:53
PROVIDERS: PCP Family Medicine; Visit Provider Family Medicine
DX: Z36.89 Encounter for other specified antenatal screening (principal)
CPT/HCPCS: 76805

== ENCOUNTER 2024-01-26 04:50 | Inpatient (IN) | payer MEDICAID, SELFPAY ==
[2024-01-26] VITALS (71 sets, daily range): BP systolic 93–158; BP diastolic 54–93; PULSE 58–116; RESP 18; TEMP 35.8–37.2; O2SAT 90–100; BMI 35.5
[2024-01-26 04:55] LABS: Basophils % 0.5 %; Eosinophils % 0.4 %; Hematocrit 35.6 % (36-47); Lymphocytes # 2.6 10^3/uL (0.8-4.8); Lymphocytes % 31.5 %; Mean Corpuscular HGB Conc 32.9 g/dL (30-55); Mean Corpuscular Volume 85.2 fl (85-98); Mean Platelet Volume 11.5 fL (7.4-10.4); Monocytes # 0.6 10^3/uL (0.2-0.9); Neutrophils # 5.06 10^3/uL (1.8-7.7); Neutrophils % 60.4 %; Nucleated Red Blood Cells % 0 %; Platelet Count 206 10^3/cmm (157-399); Red Blood Count 4.18 10^6/uL (3.85-5.65); White Blood Count 8.38 10^3/uL (3.29-11.43)
--- NOTE | 2024-01-26 06:22 | P.ANESASSM_ITS ---
Pre-Anesthetic Assessment Height/Weight: Height 1.7 m Temp Pulse BP Pulse Ox 96.4 F L 70 136/73 100 01/26/24 04:17 01/26/24 06:19 01/26/24 06:19 01/26/24 06:17 Labor epidural Familial anesthetic complications: None Was Beta Marv taken within 24 hours: N/A Was Clonidine taken within 24 hours: N/A Last intake: Solids 12 hours ago Social No alcohol and No tobacco Exam alert, oriented x 3, clear to auscultation bilaterally and regular rate & rhythm Airway Submandibular: within normal limits Cervical ROM: within normal limits Mallampati: Class II Dentition: chipped Comments: Comments: Missing History/ROS No significant history except as noted and No significant complaints Pulmonary None reported CV/HEM Anemia and Murmur None reported Hepatic None reported GI Gastroesophageal Reflux Disease N/V Metabolic None reported Musc/skel Scoliosis (Has been cleared for epidurals and has had two in the past) Neuropsych Anxiety, Depression, Headache (Chronic migraines), Neuropathy and Seizure (Febrile seizures as a child) Anesthetic Plan ASA status: 3 Anesthesia: Anesthesia Evaluation, General and Regional (specify below) (Epidural) Risk of > 500 ml blood loss (7ml/kg in children): Yes, adequate IV access and fluids planned Medications/Allergies Home Medications Medication Instructions Recorded Confirmed Last Taken Type buspirone 10 mg tablet 10 mg PO BID 02/12/21 01/26/24 12/22/22 History fluoxetine 40 mg capsule 40 mg PO DAILY 02/12/21 01/26/24 12/22/22 History docusate sodium 100 mg capsule 100 mg PO BID #60 caps 12/31/22 01/26/24 Unknown Rx ferrous sulfate 325 mg (65 mg 325 mg PO DAILY #90 tabs 12/31/22 01/26/24 Unknown Rx iron) tablet,delayed release ibuprofen 800 mg tablet 800 mg PO TID #90 tabs 12/31/22 01/26/24 Unknown Rx multivitamin no.51-ferrous 1 cap PO DAILY #90 caps 12/31/22 01/26/24 Unknown Rx fumarate 106.5 mg-folic acid 1 mg capsule (-U) Allergies Allergy/AdvReac Type Severity Reaction Status Date / Time No Known Allergies Allergy Verified 12/22/22 19:20 [facility] Anesthesia Medical History Iron deficiency anemia Surgical History No history of previous surgery Family History Grandfather Hypertension maternal Heart disease maternal Hyperlipidemia maternal Lung cancer maternal Mother Diabetes Stroke Grandmother Stroke paternal Thyroid disease paternal Breast cancer maternal great Family/Other Breast cancer maternal great aunt Ovarian cancer maternal great aunt Uterine cancer maternal great aunt, paternal aunt Social History Smoking and tobacco/nicotine status: never used tobacco/nicotine Alcohol intake: never Substance/Drug Use: never Data Anesthesia 01/26/24 04:45 Short CBC 01/26/24 Range/Units 04:45 WBC 8.38 (3.29-11.43) 10^3/uL Hgb 11.70 (11.27-16.99) g/dL Hct 35.6 L (36-47) % MCV 85.2 (85-98) fl Plt Count 206 (157-399) 10^3/cmm Neut % (Auto) 60.4 % Neut # (Auto) 5.06 (1.8-7.7) 10^3/uL Blood Bank 01/26/24 04:45 Blood Type A Positive Rho(D) Type Rh positive Antibody Screen Negative Cardiac Studies: 2 No Data to Display
--- NOTE | 2024-01-26 06:37 | ANES.PROC ---
Anesthesia Procedures Procedure/Date: 01/26/24 Epidural: Time Out Performed: Yes Consents Signed: Procedure Consent and NPO Consent Consent: requested by attending/covering physician, from patient, risks and benefits reviewed and patient agrees to proceed Lumbar Level: L3-L4 Epidural position: sitting Epidural procedure: sterile prep of area (betadine), 1% lidocaine to numb the area (3 mLs), neg for paresthesia, test dose given, 1.5% xylocaine 1:200k epi (3 mL/2 mL), 0.2% Ropivacaine bolus ml (5 mLs), placed PCEA, no systemic response, sterile dressing applied, L.U.D. no apparent complications and 0.2% Ropiavacaine @ mls/hr (10 mLs/hr) Additional Comments: Attempt x1. TATUM 4.5cm, catheter threaded to 10cm. 100 mcg fentanyl given via epidural.
[2024-01-26] MEDS: dextrose 5%-lactated ringers 1,000 ML 125 ML IV ×2 (07:25→15:20)
--- NOTE | 2024-01-26 07:39 | P.HP_ITS ---
Providers/Chief Complaint 2 Admitting Physician: Susan Miramontes DO Primary Care Provider: Tiago Grimaldo MD Chief Complaint: contractions HPI SUPERVISOR PHOSPHORUS PROCESSING History of Present Illness Melida Arora is a 28 year old female at 39 weeks 1 day presenting for contractions starting at 8 PM. PMHx includes depression and anxiety, bipolar disorder. course complicated by mild anemia on iron supplementation. Denies LOF, vaginal bleeding. Good movement. care was good and starting at early second trimester. This is a close interval and she did have hemorrhage not requiring transfusion at her last delivery. Present Details : 3 Para: 2 Labs Blood type OB HPI: A (+) positive Rubella: Immune RPR: Negative GBS: Negative HBsAG: Negative Other Lab Information: HIV negative HCV ab negative RPR negative Quad screen neg/low risk Initial H/H 12.4/39.1 3rd trimester H/H 10.5/31 1hr GTT passed- 110 GC/Chlam negative Urine culture negative Review of Systems 2 Const: Denies: fever(s) or chills Card: Denies: chest pain or palpitations Resp: Denies: dyspnea or productive cough : Denies: dysuria Psych: Reports: anxiety and depression; Denies: suicidal ideation Medications/Allergies Home Medications Medication Instructions Recorded Confirmed Last Taken Type buspirone 10 mg tablet 10 mg PO BID 02/12/21 01/26/24 12/22/22 History fluoxetine 40 mg capsule 40 mg PO DAILY 02/12/21 01/26/24 12/22/22 History docusate sodium 100 mg capsule 100 mg PO BID #60 caps 12/31/22 01/26/24 Unknown Rx ferrous sulfate 325 mg (65 mg 325 mg PO DAILY #90 tabs 12/31/22 01/26/24 Unknown Rx iron) tablet,delayed release ibuprofen 800 mg tablet 800 mg PO TID #90 tabs 12/31/22 01/26/24 Unknown Rx multivitamin no.51-ferrous 1 cap PO DAILY #90 caps 12/31/22 01/26/24 Unknown Rx fumarate 106.5 mg-folic acid 1 mg capsule (-U) Allergies Allergy/AdvReac Type Severity Reaction Status Date / Time No Known Allergies Allergy Verified 12/22/22 19:20 PFSH SUPERVISOR 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 PROCESSING 2 PFSH: Medical History Iron deficiency anemia Surgical History No history of previous surgery Family History Grandfather Hypertension maternal Heart disease maternal Hyperlipidemia maternal Lung cancer maternal Mother Diabetes Stroke Grandmother Stroke paternal Thyroid disease paternal Breast cancer maternal great Family/Other Breast cancer maternal great aunt Ovarian cancer maternal great aunt Uterine cancer maternal great aunt, paternal aunt Social History Smoking and tobacco/nicotine status: never used tobacco/nicotine Alcohol intake: never Substance/Drug Use: never Other Female Reproductive History: Hx Age of Menarche: 14 Duration of menses: 3-5 days (3 days) Cycle Length: 26-35 days Menstrual flow: normal/abnormal: light History History History 2 3 Term 2 0 Miscarriages/Ectopic 0 Living Children 2 Vitals/I&O/Wt Last Vital Signs Temp 96.6 F L 01/26/24 07:05 Pulse 58 L 01/26/24 07:25 BP 113/65 01/26/24 07:25 Pulse Ox 98 01/26/24 07:02 O2 Del Method Room Air 01/26/24 04:37 Weight last 48 hrs Weight 227 lb Physical Exam 2 Const: COMMON NORMALS: no acute distress, healthy appearing and alert Resp: COMMON NORMALS: normal respiratory effort, No use of accessory muscles and clear to auscultation bilaterally AUSCULTATION: clear to auscultation bilaterally Cardio: COMMON NORMALS: regular rate, regular rhythm, S1 normal heart sound present, S2 normal heart sound present and No murmurs present (Cardio) RATE: regular rate RHYTHM: regular rhythm HEART SOUNDS: S1 normal heart sound present and S2 normal heart sound present : OTHER: gravid- size=dates Extremity: NARRATIVE EXTREMITY EXAM: trace LE edema pitting bilaterally, calves NTTP bilaterally without erythema or warmth Neuro: SENSORIUM/ORIENTATION: Yes alert Data 01/26/24 04:45 Results Labs OB ([facility]): 2 Obstetrics US 09/09/22 Obstetrics US/Biophysical Profile Blood Type A Positive 01/26/24 Antibody Screen Negative 01/26/24 Hct 35.6 % (36-47) L 01/26/24 Hgb 11.70 g/dL (11.27-16.99) 01/26/24 Rho(D) Type Rh positive 01/26/24 Plt Count 206 10^3/cmm (157-399) 01/26/24 Urine Opiates Screen Negative ng/mL (Negative) 12/25/19 Ur Barbiturates Screen Negative ng/mL (Negative) 12/25/19 Ur Phencyclidine Scrn Negative ng/mL (Negative) 12/25/19 Ur Amphetamines Screen Negative ng/mL (Negative) 12/25/19 U Benzodiazepines Scrn Negative ng/mL (Negative) 12/25/19 Urine Cocaine Screen Negative ng/mL (Negative) 12/25/19 U Marijuana (THC) Screen Negative ng/mL (Negative) 12/25/19 A&P Assessment and plan (1) Spontaneous onset of labor: 28yo admitted for spontaneous labor at 39w1d. Initial SVE 4/50/-2, bulging bag per RN Routine CBC. May have epidural when desired. Continuous EFM. Expectant management. (2) Depression: On fluoxetine, buspar. (3) Anemia: On iron supplementaiton Attestations 2 Medical Necessity Statement*: Melida Gonzalez Arora's hospital stay will require greater than 2 midnights for labor, delivery, and care. Coding Level of Care Code Acute Code for Chg Fwd Diagnoses Spontaneous onset of labor Depression F32.A Anemia D64.9
[2024-01-26 08:26] LABS: Amphetamines Screen Urine Negative (Negative); Barbiturates Screen Urine Negative (Negative); Benzodiazepines Screen Urine Positive (Negative); Cocaine Screen Urine Negative (Negative); Opiate Screen Urine Negative (Negative); PCP Screen Urine Negative (Negative); THC Screen Urine Negative (Negative)
[2024-01-26] MEDS: ROPivacaine syringe 100 MG/50 ML SYRINGE 10 MG EPIDURAL ×2 (10:08→14:10)
[2024-01-26] MEDS: calcium carbonate 500 mg Chew Tablet 1000 MG PO (10:29)
[2024-01-26 11:02] LABS: Amphetamines Screen Urine Negative (Negative); Barbiturates Screen Urine Negative (Negative); Benzodiazepines Screen Urine Positive (Negative); Cocaine Screen Urine Negative (Negative); Opiate Screen Urine Negative (Negative); PCP Screen Urine Negative (Negative); THC Screen Urine Negative (Negative)
[2024-01-26] MEDS: ondansetron 2 mg/ML SDV 2 mL 4 MG IVP (13:00)
[2024-01-26] MEDS: tranexamic acid 1,000 MG/100 ML PREMIX 600 MG IV (14:52)
[2024-01-26] MEDS: oxytocin 30 UNIT/500 ML BAG 600 UNIT IV (14:53)
[2024-01-26] MEDS: miSOPROStol 200 mcg Tablet 800 MCG PR (15:17)
[2024-01-26] MEDS: methylergonovine 0.2 mg/mL INJ 1 mL IM (15:41)
--- NOTE | 2024-01-26 15:46 | PM.DELIVERY ---
Delivery Note: Date of delivery: January 26, 2024 Pre-delivery diagnoses: Term Spontaneous labor Post-delivery diagnoses: Term delivery of viable female Procedure: Spontaneous vaginal delivery Delivering Physician: Susan Miramontes DO Estimated blood loss (mL): 300 Pre-Delivery Course: She was admitted on 01/26/2024 at approximately 4:30 AM with regular contractions and SVE of 4/50/-3. She received epidural anesthesia and was adequate. She then progressed steadily to complete at approximately 2:15 PM. Delivery: Patient progressed to complete. Patient placed in lithotomy position. Patient pushed with adequate effort. Head delivered in RAY position, tight nuchal cord was present and reduced. Shoulders and rest of body delivered without difficulty with epidural anesthesia. Mouth and nares bulb suctioned. Cord clamped and cut after 2.5-minute delay once umbilical cord had stopped pulsating at parents request. Infant placed on maternal abdomen and was vigorous but was noted to have some depressed respirations and was then transferred over to the warmer for further resuscitation. Placenta spontaneously delivered. Noted placenta to have a dime sized and a quarter sized area on the edge of the placenta with appearance of torn surface. Pitocin started. Fundus was noted to be to be firm with massage. The vagina and cervix were inspected and no lacerations were noted. Periclitoral abrasion was noted but was hemostatic. fundus was again noted to be firm but she did have continued bleeding with each fundal massage. Uterine sweeps were performed with small amounts of placental and amniotic sac tissue removed with each sweep. She was also given tranexamic acid and Cytotec per rectum she continued to have small amount of bleeding with each fundal massage although. Fundus remained firm. At that time I did discuss the case with on-call OB physician Dr. Galdamez who recommended Methergine 0.2 mg IM for 1 initial dose and then reevaluate for p.o. Methergine every 6 hours after. Female born at 1434 with 8/8 weighing 7 pounds 14 ounces and measuring 20.25 in length Placenta noted as above with centrally inserted umbilical cord and three-vessel cord. Complications: Maternal none Infant required CPAP at 6 minutes and 45 seconds of life until approximately 8 minutes of life. History History History 3 Term 2 0 Miscarriages/Ectopic 0 Living Children 2 A&P Assessment and plan (1) Spontaneous vaginal delivery: Coding Level of Care Code Acute Code for Chg Fwd Diagnoses Spontaneous vaginal delivery O80
[2024-01-26] MEDS: ibuprofen 800 mg tablet PO (21:30)
[2024-01-27 01:00] VITALS: BP 108/61; PULSE 65; RESP 18; TEMP 36.7
[2024-01-27 04:46] LABS: Hematocrit 32.1 % (36-47); Mean Corpuscular HGB Conc 31.8 g/dL (30-55); Mean Corpuscular Hemoglobin 28.2 pg (27-33); Mean Corpuscular Volume 88.7 fl (85-98); Mean Platelet Volume 11.6 fL (7.4-10.4); Platelet Count 154 10^3/cmm (157-399); Red Blood Count 3.62 10^6/uL (3.85-5.65); Red Cell Distribution Width 16.1 % (12.1-15.1)
[2024-01-27 05:00] VITALS: BP 117/78; PULSE 60; RESP 18; TEMP 36.4
--- NOTE | 2024-01-27 07:13 | ANE.PACU2 ---
Inpatient post-anesthesia follow up: Airway intact: Yes Vital signs: Temperature 98 F Pulse Rate 63 Respiratory Rate 16 Blood Pressure 99/64 Pulse Oximetry 98 Oxygen Delivery Me thod Room Air Oxygen Flow Rate Fraction of Inspir ed Oxygen Hydration adequate: Yes Nausea and vomiting: No Pain level: 1 Mental status: Baseline Epidural Start/End: Epidural Start Date: 01/26/24 Epidural Start Time: 06:06 Epidural End Date: 01/26/24 Epidural End Time: 18:00
[2024-01-27] MEDS: ibuprofen 800 mg tablet PO ×2 (09:02→14:50)
[2024-01-27] MEDS: docusate sodium 100 mg Capsule PO (09:02)
[2024-01-27] MEDS: PRENATAL VIT NO.130/IRON/FOLIC 1 EACH TABLET PO (09:02)
[2024-01-27 09:03] VITALS: BP 97/62; PULSE 62; RESP 14; TEMP 36.6; TEMP 36.7; O2SAT 97
[2024-01-27 16:18] VITALS: BP 99/63; PULSE 81; RESP 16; TEMP 36.6; TEMP 36.7; O2SAT 97
--- NOTE | 2024-01-27 16:35 | P.DS_ITS ---
Discharge Providers ANALYSIS SPECIALIST Date of Admission: 01/26/24 04:50 Date of Discharge: 01/27/24 Attending Provider at Admission: Susan Miramontes DO Attending Provider at Discharge: Susan Miramontes DO Primary Care Provider: Tiago Grimaldo MD Diagnoses at Discharge Discharge Diagnosis (1) Spontaneous vaginal delivery: Status: Acute Reason for Visit Reason for Visit: contractions Hospital Course Hospital Course Pre-Delivery Course: She was admitted on 01/26/2024 at approximately 4:30 AM with regular contractions and SVE of /-3. She received epidural anesthesia and was adequate. SROM at approx 10am with light meconium fluid. She then progressed steadily to complete at approximately 2:15 PM. Delivery: Patient progressed to complete. Patient placed in lithotomy position. Patient pushed with adequate effort. Head delivered in RAY position, tight nuchal cord was present and reduced. Shoulders and rest of body delivered without difficulty with epidural anesthesia. Mouth and nares bulb suctioned. Cord clamped and cut after 2.5-minute delay once umbilical cord had stopped pulsating at parents request. Infant placed on maternal abdomen and was vigorous but was noted to have some depressed respirations and was then transferred over to the warmer for further resuscitation. Placenta spontaneously delivered. Noted placenta to have a dime sized and a quarter sized area on the edge of the placenta with appearance of torn surface. Pitocin started. Fundus was noted to be to be firm with massage. The vagina and cervix were inspected and no lacerations were noted. Periclitoral abrasion was noted but was hemostatic. fundus was again noted to be firm but she did have continued bleeding with each fundal massage. Uterine sweeps were performed with small amounts of placental and amniotic sac tissue removed with each sweep. She was also given tranexamic acid and Cytotec per rectum she continued to have small amount of bleeding with each fundal massage although. Fundus remained firm. At that time I did discuss the case with on-call OB physician Dr. Galdamez who recommended Methergine 0.2 mg IM for 1 initial dose and then reevaluate for p.o. Methergine every 6 hours after. Female born at 1434 with 8/8 weighing 7 pounds 14 ounces and measuring 20.25 in length Placenta noted as above with centrally inserted umbilical cord and three-vessel cord. Complications: Maternal none Infant required CPAP at 6 minutes and 45 seconds of life until approximately 8 minutes of life. EBL: 300cc course: Patient underwent on 01/26/24. course was routine. Following delivery patient ambulated well, tolerated a normal diet without nausea or vomiting. Pain was well-controlled on PO medications, bottle/formula feeding, no leg/calf pain, no calf/leg swelling, normal urination, passing gas and normal bowel movements. Vaginal bleeding decreasing and thin lochia. She did not require any further methergine after initial IM dose after delivery. labs significant for hemoglobin 10.2 down from 11.7 on admission. She is continued on her home iron supplementation on discharge. Follow-up planned for 2 and 6 weeks . Warning signs for endometritis, pre-eclampsia, DVT/PE, mastitis were reviewed, discussed additional warning signs including increased vaginal bleeding, worsening abdominal pain. Pelvic rest and activity precautions reviewed as well. She is discharged on 01/28/24 in stable condition. Information Peripartum Data: Infant Delivery Method: Vaginal Physical Exam Const: COMMON NORMALS: no acute distress, healthy appearing and alert Resp: COMMON NORMALS: normal respiratory effort, No use of accessory muscles and clear to auscultation bilaterally AUSCULTATION: clear to auscultation bilaterally Cardio: COMMON NORMALS: regular rate, regular rhythm, S1 normal heart sound present, S2 normal heart sound present and No murmurs present (Cardio) RATE: regular rate RHYTHM: regular rhythm HEART SOUNDS: S1 normal heart sound present and S2 normal heart sound present GI: OTHER: Uterine fundus firm and at the umbilicus Extremity: NARRATIVE EXTREMITY EXAM: trace LE edema pitting bilaterally, calves NTTP bilaterally without erythema or warmth Neuro: SENSORIUM/ORIENTATION: Yes alert Urinary Catheter Management: Colón: Cath Placed During This Visit: yes, but has since been removed by the nurse Reason for Continuing Indwelling Catheter: Decision to DC Catheter Urinary Catheter Date of Insertion: 01/26/24 Urinary Catheter Time of Insertion: 07:10 Date Urinary Catheter Removed: 01/26/24 Time Urinary Catheter Discontinued: 14:25 History History History 3 Term 3 0 Miscarriages/Ectopic 0 Living Children 3 Discharge Data Studies Completed and Pending Pending at discharge Category Date Time Status Miscellaneous Test Stat Lab 01/26/24 07:50 Received Laboratory Results WBC 9.70 10^3/uL (3.29-11.43) 01/27/24 04:25 RBC 3.62 10^6/uL (3.85-5.65) L 01/27/24 04:25 Hgb 10.20 g/dL (11.27-16.99) L 01/27/24 04:25 Hct 32.1 % (36-47) L 01/27/24 04:25 MCV 88.7 fl (85-98) 01/27/24 04:25 MCH 28.2 pg (27-33) 01/27/24 04:25 MCHC 31.8 g/dL (30-55) 01/27/24 04:25 RDW 16.1 % (12.1-15.1) H 01/27/24 04:25 Plt Count 154 10^3/cmm (157-399) L 01/27/24 04:25 MPV 11.6 fL (7.4-10.4) H 01/27/24 04:25 Neut % (Auto) 60.4 % 01/26/24 04:45 Lymph % (Auto) 31.5 % 01/26/24 04:45 [place] % (Auto) 7.0 % 01/26/24 04:45 Eos % (Auto) 0.4 % 01/26/24 04:45 Baso % (Auto) 0.5 % 01/26/24 04:45 Neut # (Auto) 5.06 10^3/uL (1.8-7.7) 01/26/24 04:45 Lymph # (Auto) 2.6 10^3/uL (0.8-4.8) 01/26/24 04:45 [place] # (Auto) 0.6 10^3/uL (0.2-0.9) 01/26/24 04:45 Eos # (Auto) 0.0 10^3/uL (0.0-0.8) 01/26/24 04:45 Baso # (Auto) 0.0 10^3/uL (0.0-0.1) 01/26/24 04:45 Nucleated RBC % (auto) 0 % 01/26/24 04:45 Nucleated RBCs # 0.0 /100WBC 01/26/24 04:45 Urine Opiates Screen Negative ng/mL (Negative) 01/26/24 10:27 Ur Barbiturates Screen Negative ng/mL (Negative) 01/26/24 10:27 Ur Phencyclidine Scrn Negative ng/mL (Negative) 01/26/24 10:27 Ur Amphetamines Screen Negative ng/mL (Negative) 01/26/24 10:27 U Benzodiazepines Scrn Positive ng/mL (Negative) H 01/26/24 10:27 Urine Cocaine Screen Negative ng/mL (Negative) 01/26/24 10:27 U Marijuana (THC) Screen Negative ng/mL (Negative) 01/26/24 10:27 Blood Type A Positive 01/26/24 04:45 Rho(D) Type Rh positive 01/26/24 04:45 Antibody Screen Negative 01/26/24 04:45 Vitals Last Vital Signs Temp 98.0 F 01/27/24 16:18 Pulse 81 01/27/24 16:18 Resp 16 01/27/24 16:18 BP 99/63 01/27/24 16:18 Pulse Ox 97 01/27/24 16:18 O2 Del Method Room Air 01/27/24 16:18 Results Labs OB ([facility]): Obstetrics US 09/09/22 Obstetrics US/Biophysical Profile Blood Type A Positive 01/26/24 Antibody Screen Negative 01/26/24 Hct 32.1 % (36-47) L 01/27/24 Hgb 10.20 g/dL (11.27-16.99) L 01/27/24 Rho(D) Type Rh positive 01/26/24 Plt Count 154 10^3/cmm (157-399) L 01/27/24 Urine Opiates Screen Negative ng/mL (Negative) 01/26/24 Ur Barbiturates Screen Negative ng/mL (Negative) 01/26/24 Ur Phencyclidine Scrn Negative ng/mL (Negative) 01/26/24 Ur Amphetamines Screen Negative ng/mL (Negative) 01/26/24 U Benzodiazepines Scrn Positive ng/mL (Negative) H 01/26/24 Urine Cocaine Screen Negative ng/mL (Negative) 01/26/24 U Marijuana (THC) Screen Negative ng/mL (Negative) 01/26/24 Discharge Plan Discharge Patient Disposition: Home Condition: Stable Prescriptions: New ibuprofen 800 mg Tablet 800 mg PO TID Qty: 90 0RF Continued buspirone 10 mg tablet 10 mg PO BID fluoxetine 40 mg capsule 40 mg PO DAILY ibuprofen 800 mg Tablet 800 mg PO TID Qty: 90 0RF docusate sodium 100 mg Capsule 100 mg PO BID Qty: 60 0RF ferrous sulfate 325 mg (65 mg iron) Tablet,Delayed Release (Dr/Ec) 325 mg PO DAILY Qty: 90 0RF -U 106.5-1 mg Capsule 1 cap PO DAILY Qty: 90 0RF Discharge Orders: Discharge Order (Routine); Ordered 01/27/24 Ordered By: Susan Miramontes Discharge Diet: Regular Discharge Activity: Increase activity as tolerated Patient Instructions: Depression (DC), Opioid Safety (DC), P reeclampsia and Eclampsia After Delivery (GEN), Hemorrhage (DC), OB Discharge Report, OB Food/Drug Interaction Guide, OB Care at Home, Opioid Safety, OB Vaginal Deliveries, Abnormal Bleeding Activity Restrictions/Additional Instructions: Follow-up with Dr. Miramontes at 2 and 6 weeks . Discharge Attestations ANALYSIS SPECIALIST Time Spent in Discharge Care*: less than 30 min Coding Level of Care Code Acute Code for Chg Fwd Diagnoses Spontaneous vaginal delivery O80
[2024-01-27 18:50] VITALS: BP 99/64; PULSE 63; RESP 16; TEMP 36.6; O2SAT 98
== END 2024-01-27 18:50 | disposition home or self-care (01) | DRG 807 ==
LOC: OPOB 15:48 → OBGYN 15:48
PROVIDERS: Admitting Provider Family Medicine; PCP Family Medicine; Visit Provider Family Medicine
DX: O99.02 Anemia complicating childbirth (principal); Z37.0 Single live birth; O99.344 Other mental disorders complicating childbirth; F41.9 Anxiety disorder, unspecified; O69.81X0 Labor and delivery complicated by cord around neck, without compression, not applicable or unspecified; O43.893 Other placental disorders, third trimester; Z3A.39 39 weeks gestation of pregnancy; F32.A Depression, unspecified; D64.9 Anemia, unspecified; R82.5 Elevated urine levels of drugs, medicaments and biological substances
CPT/HCPCS: 36415; 51702; 59025; 59409; 80306; 85025; 85027; 86850; 86900; 88307; 96372; 96374; 99211; J2210; J2405; J2590; J2795; J3010; J7121; J9999

== ENCOUNTER 2024-05-13 16:17 | Inpatient (IN) | payer MEDICAID, SELFPAY ==
[2024-05-13 16:21] VITALS: BP 137/75; PULSE 67; RESP 17; TEMP 36.7; O2SAT 97; BMI 29.7
[2024-05-13 16:28] VITALS: BP 117/74; PULSE 63; RESP 16; TEMP 36.7; O2SAT 100
--- NOTE | 2024-05-13 16:29 | ED.C_ITS ---
HPI - Psych 2 General: Chief Complaint: Psychiatric Symptoms Stated Complaint: si Time Seen by Provider: 05/13/24 16:19 Source: patient Mode of arrival: ambulatory Limitations: no limitations History of Present Illness: Patient is a nice 28-year-old female who presents to ED today for evaluation of worsening depression and self harming behaviors as well as some passive suicidal thoughts. Patient states she does not want to kill herself and has no specific plan but feels like her depression has gotten so bad that she does want to . She states she was on antidepressant medications over the past several years but recently stopped taking them because they weren't working . Patient states she has a lot of stress at home as she is a single mother of 3 with her youngest child being 3 months old. Patient states she relapsed on self harming behavior as she has done this in 5 years but recently has started cutting her upper arm again. MD complaint: feels depressed Onset (ago): week(s) Duration: constant and getting worse History of same: Yes Relieving factors: none Exacerbating factors: other (stress) Associated psychiatric symptoms: depression Associated symptoms: Reports depression; Deny auditory hallucinations, visual hallucinations or homicidal ideation Related Data Home Medications Medication Instructions Recorded Confirmed buspirone 10 mg tablet 10 mg PO BID 02/12/21 01/26/24 fluoxetine 40 mg capsule 40 mg PO DAILY 02/12/21 01/26/24 Previous Rx's Medication Instructions Recorded docusate sodium 100 mg capsule 100 mg PO BID #60 caps 12/31/22 ferrous sulfate 325 mg (65 mg 325 mg PO DAILY #90 tabs 12/31/22 iron) tablet,delayed release ibuprofen 800 mg tablet 800 mg PO TID #90 tabs 12/31/22 multivitamin no.51-ferrous 1 cap PO DAILY #90 caps 12/31/22 fumarate 106.5 mg-folic acid 1 mg capsule (-U) ibuprofen 800 mg tablet 800 mg PO TID #90 tabs 01/27/24 Allergies Allergy/AdvReac Type Severity Reaction Status Date / Time No Known Allergies Allergy Verified 12/22/22 19:20 Review of Systems 2 Const: Denies: fever(s) or chills Card: Denies: chest pain, palpitations, lightheadedness or syncope Resp: Denies: dyspnea GI: Denies: abdominal pain, nausea, vomiting or diarrhea Skin/Breast: Denies: rash Neuro: Denies: headache(s) Psych: Reports: anxiety, depression and hopelessness; Denies: visual hallucinations, auditory hallucinations or homicidal ideation PFSH ED 2 PFSH: Medical History hemorrhage Iron deficiency anemia Surgical History No history of previous surgery Family History Grandfather Hypertension maternal Heart disease maternal Hyperlipidemia maternal Lung cancer maternal Mother Diabetes Stroke Grandmother Stroke paternal Thyroid disease paternal Breast cancer maternal great Family/Other Breast cancer maternal great aunt Ovarian cancer maternal great aunt Uterine cancer maternal great aunt, paternal aunt Social History Smoking and tobacco/nicotine status: never used tobacco/nicotine Alcohol intake: never Substance/Drug Use: never Physical Exam 2 Const: COMMON NORMALS: no acute distress, patient oriented x3, alert and well nourished GENERAL APPEARANCE: cooperative and well kempt Resp: COMMON NORMALS: normal respiratory effort and clear to auscultation bilaterally AUSCULTATION: clear to auscultation bilaterally Cardio: COMMON NORMALS: regular rate and regular rhythm RATE: regular rate RHYTHM: regular rhythm Neuro: COMMON NORMALS: patient oriented x3 SENSORIUM/ORIENTATION: Yes alert Psych: COMMON NORMALS: mental status grossly normal, Normal thought process present, cooperative, normal affect, speech normal, activity/motor behavior normal, denies hallucinations, denies homicidal ideation and denies suicidal ideation (states she doesn't want to kill herself but wants to ) A PPEARANCE: Yes grossly normal and Yes well kempt ATTITUDE: Yes calm A CTIVITY/MOTOR BEHAVIOR: Yes appropriate eye contact and No psychomotor agitation SPEECH: Yes normal speech MOOD & AFFECT: Yes euthymic mood THOUGHT PROCESS: Normal thought process present ATTENTION/CONCENTRATION: Yes attention grossly intact and Yes concentration grossly intact M ED/COGNITION: Yes memory grossly intact and Yes cognition grossly intact I NSIGHT: Good insight present (Psych) JUDGEMENT: Good judgement present (Psych) Course 2 Consultations: Consultation #1: Dr. Interiano-accepts to [facility] Vital Signs: Vital signs: Vital Signs Temperature 98.1 F 05/13/24 16:21 Pulse Rate 67 05/13/24 16:21 Respiratory Rate 17 05/13/24 16:21 Blood Pressure 137/75 05/13/24 16:21 Pulse Oximetry 97 05/13/24 16:21 Oxygen Delivery Me thod Room Air 05/13/24 16:21 MDM - Psych Medical Decision Making Patient will be an admit to [facility] for treatment of worsening depression, self harming behavior, and passive suicidal thoughts. I will place affidavit on her chart. Medical Records I reviewed the patient's medical records. Lab Data I reviewed the patient's lab results. 05/13/24 16:45 05/13/24 16:45 Laboratory Results HCG, Qual Negative (Negative) 05/13/24 16:35 No radiology studies performed this visit Discharge Plan Discharge Patient Disposition: Admitted As Inpatient Clinical Impression: Depression, Self-harming behavior Condition: Stable Coding Level of Care Code ED Hot Tar Roofer for Deion Leiva
[2024-05-13 16:51] LABS: HCG Qualitative Urine. Negative (Negative)
[2024-05-13 16:55] LABS: Basophils % 0.3 %; Eosinophils # 0.1 10^3/uL (0.0-0.8); Eosinophils % 0.8 %; Hematocrit 36.1 % (36-47); Lymphocytes # 2.7 10^3/uL (0.8-4.8); Lymphocytes % 28.2 %; Mean Corpuscular HGB Conc 32.4 g/dL (30-55); Mean Corpuscular Hemoglobin 28.1 pg (27-33); Mean Corpuscular Volume 86.8 fl (85-98); Mean Platelet Volume 10.3 fL (7.4-10.4); Monocytes # 0.5 10^3/uL (0.2-0.9); Neutrophils # 6.23 10^3/uL (1.8-7.7); Neutrophils % 65.5 %; Nucleated Red Blood Cells % 0 %; Platelet Count 256 10^3/cmm (157-399); Red Blood Count 4.16 10^6/uL (3.85-5.65); Red Cell Distribution Width 13.2 % (12.1-15.1); White Blood Count 9.52 10^3/uL (3.29-11.43)
[2024-05-13 17:21] LABS: Alanine Aminotransferase 28 U/L (0-33); Albumin Level 4.3 g/dL (3.5-5.2); Alkaline Phosphatase 67 U/L (35-105); Anion Gap 15.7 (5-19); Aspartate Amino Transferase 20 U/L (0-32); Blood Urea Nitrogen 8 mg/dL (6-20); Calcium 9.7 mg/dL (8.5-10.5); Carbon Dioxide 25 mmol/L (22-29); Chloride 104 mmol/L (98-107); Creatinine Clr Calc Pharmacy 190.5877; Glucose 92 mg/dL (65-115); Osmolality Calculated 290 mOsm/kg (285-295); Potassium 3.7 mmol/L (3.5-5.1); Sodium 141 mmol/L (136-145); Total Bilirubin 0.8 mg/dL (0.15-1.2); Total Protein 7.3 g/dL (6.6-8.7)
[2024-05-13 17:22] LABS: Acetaminophen < 5.0 ug/mL (10-30); Alcohol Level < 10 mg/dL (0-10); Salicylate < 0.3 mg/dL (3-10)
[2024-05-13 17:55] VITALS: BP 117/74; PULSE 63; O2SAT 100
[2024-05-13 18:01] VITALS: BP 111/75; PULSE 71; RESP 16; TEMP 36.7; O2SAT 99
--- NOTE | 2024-05-13 18:07 | PC.NURSE ---
pt arrived to unit via wheelchair accompanied by Ed staff. pt denies any needs at this time. pt appears to be calm at this time.
[2024-05-13 21:53] VITALS: BP 125/76; PULSE 70; RESP 15; TEMP 37; O2SAT 100
[2024-05-14 02:57] LABS: Amphetamines Screen Urine Negative (Negative); Barbiturates Screen Urine Negative (Negative); Benzodiazepines Screen Urine Negative (Negative); Cocaine Screen Urine Negative (Negative); Opiate Screen Urine Negative (Negative); PCP Screen Urine Negative (Negative); THC Screen Urine Negative (Negative)
[2024-05-14 06:00] VITALS: BP 113/71; PULSE 73; RESP 16; TEMP 36.7; O2SAT 97
--- NOTE | 2024-05-14 11:16 | W.PM.NPUH&PS ---
Providers/Chief Complaint Admitting Physician: James Interiano MD Primary Care Provider: Tiago Grimaldo MD Chief Complaint: si HPI NPU History of Present Illness Melida Arora is a 28 year old female who presented to the emergency department with the following report: Chief Complaint: Psychiatric Symptoms Stated Complaint: si Time Seen by Provider: 05/13/24 16:19 Source: patient Mode of arrival: ambulatory Limitations: no limitations History of Present Illness: Patient is a nice 28-year-old female who presents to ED today for evaluation of worsening depression and self harming behaviors as well as some passive suicidal thoughts. Patient states she does not want to kill herself and has no specific plan but feels like her depression has gotten so bad that she does want to . She states she was on antidepressant medications over the past several years but recently stopped taking them because they weren't working . Patient states she has a lot of stress at home as she is a single mother of 3 with her youngest child being 3 months old. Patient states she relapsed on self harming behavior as she has done this in 5 years but recently has started cutting her upper arm again. MD complaint: feels depressed Onset (ago): week(s) Duration: constant and getting worse History of same: Yes Relieving factors: none Exacerbating factors: other (stress) Associated psychiatric symptoms: depression Associated symptoms: Reports depression; Deny auditory hallucinations, visual hallucinations or homicidal ideation. She was admitted to the neuropsychiatric unit for definitive treatment of those issues. She is unknown to inpatient services here at [facility] but has had significant treatment at [facility] at different times in her life. She presented today reporting: Chief complaint The patient reported a depressive spiral triggered by recent life changes. She sought help to prevent the situation from worsening. History of the present complaint The patient, who is about to turn 29, reported that she has been dealing with a lot of life changes recently, which have led to a depressive spiral. She expressed her desire to manage this situation before it worsens. She has a history of psychiatric medication use, including Prozac and Buspar, which she started taking four years ago during her with her oldest son. However, she stopped taking these medications as she felt they were not having the desired effect. The dosage of these medications had been increased a couple of times. The patient has a history of inpatient psychiatric hospitalization once when she was 18, around the time she was homeless. She has also been in outpatient treatment intermittently since she was very young, mostly at [facility]. Other medications she has been on include Abilify and Prozac. She does not use tobacco, nicotine, alcohol, or any other drugs. 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 She described her depression as a consistent low mood, feelings of helplessness, hopelessness, and worthlessness. During these periods, she experienced sleep difficulties, reduced appetite, and low energy. She also reported having a passive wish and has attempted suicide once when she was 16. She also reported self-harming behaviors, such as skin picking, pinching herself, and cutting, which started in her merchandising specialist. The last self-harming incident was on March 02 of the current year. 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 She has experienced periods of paranoia, which she attributes to the hypervigilance associated with her PTSD. She also reported having occasional nightmares or flashbacks about bad things that have happened in the past. She has a habit of counting stairs and washing her hands excessively, which she tries to control to avoid skin damage and subsequent picking. The patient reported that she has always been obedient and did not have issues with authority figures. She also denied any history of breaking the law, starting fires, stealing things, or being cruel to animals. She reported a family history of mental health issues and suicide attempts on both sides of her family. Mental health history The patient has a history of psychiatric medication use, including Prozac, Buspar, and Abilify. She started taking Prozac four years ago during her and has been on it mostly continuously since then, with a few adjustments in dosage. She has had one previous inpatient psychiatric hospitalization when she was 18, due to homelessness. She has been in outpatient treatment off and on since a young age, mostly at [facility]. She attempted suicide once at the age of 16 by overdosing on aspirin. She also has a history of self-harm, with the most recent incident occurring on March 02 of the current year. She has been diagnosed with PTSD and experiences hypervigilance, occasional paranoia, and occasional nightmares or flashbacks. She also has Trichotillomania, which manifests as hair-pulling. Social history The patient does not smoke, drink, or use drugs. She has a history of family therapy due to her brother's issues. She has been involved in treatment since she was [age] years old. Her mother reported signs of depression in her as early as [age] years old. She has always been an anxious child, constantly worrying and stressing. She has a history of counting stairs and excessive hand washing. She has no history of law-breaking behavior. There is a family history of mental health issues and suicide attempts on both sides of her family. Meds NPU Home Medications Medication Instructions Recorded Confirmed Last Taken Type buspirone 10 mg tablet 10 mg PO BID 02/12/21 05/13/24 12/22/22 History fluoxetine 40 mg capsule 40 mg PO DAILY 02/12/21 05/13/24 12/22/22 History docusate sodium 100 mg capsule 100 mg PO BID #60 caps 12/31/22 05/13/24 Unknown Rx Allergies Allergy/AdvReac Type Severity Reaction Status Date / Time No Known Allergies Allergy Verified 12/22/22 19:20 PFSH NPU PFSH: Medical History hemorrhage Iron deficiency anemia Surgical History No history of previous surgery Family History Grandfather Hypertension maternal Heart disease maternal Hyperlipidemia maternal Lung cancer maternal Mother Diabetes Stroke Grandmother Stroke paternal Thyroid disease paternal Breast cancer maternal great Family/Other Breast cancer maternal great aunt Ovarian cancer maternal great aunt Uterine cancer maternal great aunt, paternal aunt Social History Smoking and tobacco/nicotine status: never used tobacco/nicotine Alcohol intake: never Substance/Drug Use: never Mental Status Exam MSE Comments: This is an overweight versus obese white female in hospital scrubs with limited grooming and eye contact. No abnormal movements except for psychomotor retardation. Mostly cooperative with exam in mild to moderate distress. Speech was mostly decreased rate and volume.. Mood described as depressed and anxious, affect congruent. Thought process linear and mostly organized. Thought content: Patient denied current suicidal or homicidal ideation,, there were no delusions reported or noted. The patient reported consistent depression as far back as she can remember, characterized by low mood, feelings of helplessness, hopelessness, and worthlessness. She has had sleep difficulties, low energy, reduced appetite, and passive wishes during depressive episodes. She has also had active suicidal ideation and one suicide attempt. She reported self-harming behavior, including skin picking, bruising herself, and cutting. She has a history of anxiety with physical manifestations, including Trichotillomania. She has experienced paranoia and hypervigilance associated with PTSD, as well as occasional nightmares and flashbacks. She also reported obsessive-compulsive behaviors, such as counting stairs and excessive hand washing. Attention and concentration were intact and memory was mostly reliable but not more formally tested. She is alert and oriented x 3. Insight and judgment and are limited and impulse control is impaired. Vitals/I&O/Wt Last Vital Signs Temp 98.1 F 05/14/24 06:00 Pulse 73 05/14/24 06:00 Resp 16 05/14/24 06:00 BP 113/71 05/14/24 06:00 Pulse Ox 97 05/14/24 06:00 O2 Del Method Room Air 05/14/24 06:00 Weight last 48 hrs Weight 86.183 kg Data NPU 05/13/24 16:45 05/13/24 16:45 A&P Assessment and plan (1) Self-harming behavior: (2) Major depressive disorder, recurrent: (3) PTSD (post-traumatic stress disorder): Plan This is a 28-year-old white female that is unknown to inpatient services here but with 1 previous inpatient hospitalization and past outpatient services off and on at [facility] who presents with a complex mental health history, including depression, anxiety, PTSD, and Trichotillomania. She has a history of medication use, inpatient and outpatient treatment, self-harm, and one suicide attempt. Her symptoms are currently exacerbated by recent life changes, leading to a depressive spiral with concerns for possible cluster B pathology. 1.? Start Lexapro 10 mg p.o. daily and consider propranolol for anxiety. 2.? Continue every 15 minute checks for safety. 3.? Encourage individual, group and milieu therapies. 4.? Obtain collateral information and evaluate affidavit for need for possible 96-hour hold.. Involuntary Hold Information 96 Hour Hold: 96 Hour Involuntary Admission: No Attestations NPU Medical Necessity Statement*: Inpatient hospitalization is medically necessary and the clinically appropriate intervention at this time. We will monitor medication to make changes as indicated. He will be in the hospital over 2 midnights. Likely length of stay 4-6 days. Coding Level of Care Code Acute Code for g Fwd Diagnoses Self-harming behavior Major depressive disorder, recurrent F33.9 PTSD (post-traumatic stress disorder) F43.10
[2024-05-14 14:00] VITALS: BP 120/78; PULSE 66; RESP 18; TEMP 36.7; O2SAT 100
[2024-05-14 19:27] VITALS: BP 105/68; PULSE 70; RESP 18; TEMP 37.1; O2SAT 98
[2024-05-14] MEDS: escitalopram 10 mg Tablet 5 MG PO (20:30)
[2024-05-15 06:00] VITALS: BP 101/60; PULSE 86; RESP 17; TEMP 37.2; O2SAT 98
[2024-05-15] MEDS: escitalopram 10 mg Tablet PO (08:18)
[2024-05-15 12:43] VITALS: BP 137/84; PULSE 86; RESP 16; TEMP 36.8; O2SAT 99
--- NOTE | 2024-05-15 14:06 | P.NPUPN_ITS ---
Subjective NPU 2 Subjective: Patient presented today reporting that she is doing okay. She denied any issues so far from the Lexapro. She reports that she is hopeful that she will start to feel better and having some optimism about improvement overall. She denied any side effects or problems with the medication thus far. Mental Status Exam 2 MSE Comments: This is an overweight versus obese white female in hospital scrubs with limited grooming and eye contact. No abnormal movements except for psychomotor retardation. Mostly cooperative with exam in mild to moderate distress. Speech was mostly decreased rate and volume.. Mood described as depressed and anxious, affect congruent. Thought process linear and mostly organized. Thought content: Patient denied current suicidal or homicidal ideation,, there were no delusions reported or noted. The patient reported consistent depression as far back as she can remember, characterized by low mood, feelings of helplessness, hopelessness, and worthlessness. She has had sleep difficulties, low energy, reduced appetite, and passive wishes during depressive episodes. She has also had active suicidal ideation and one suicide attempt. She reported self- harming behavior, including skin picking, bruising herself, and cutting. She has a history of anxiety with physical manifestations, including Trichotillomania. She has experienced paranoia and hypervigilance associated with PTSD, as well as occasional nightmares and flashbacks. She also reported obsessive-compulsive behaviors, such as counting stairs and excessive hand washing. Attention and concentration were intact and memory was mostly reliable but not more formally tested. She is alert and oriented x 3. Insight and judgment and are limited and impulse control is impaired. Vitals/I&O/Wt Last Vital Signs Temp 98.2 F 05/15/24 12:43 Pulse 86 05/15/24 12:43 Resp 16 05/15/24 12:43 BP 137/84 05/15/24 12:43 Pulse Ox 99 05/15/24 12:43 O2 Del Method Room Air 05/15/24 12:43 Weight last 48 hrs Weight 86.183 kg Data NPU 05/13/24 16:45 05/13/24 16:45 A&P Assessment and plan (1) Self-harming behavior: (2) Major depressive disorder, recurrent: (3) PTSD (post-traumatic stress disorder): Plan This is a 28-year-old white female that is unknown to inpatient services here but with 1 previous inpatient hospitalization and past outpatient services off and on at [facility] [place] who presents with a complex mental health history, including depression, anxiety, PTSD, and Trichotillomania. She has a history of medication use, inpatient and outpatient treatment, self-harm, and one suicide attempt. Her symptoms are currently exacerbated by recent life changes, leading to a depressive spiral with concerns for possible cluster B pathology. 1.? Started Lexapro 10 mg p.o. daily and consider propranolol for anxiety. 2.? Continue every 15 minute checks for safety. 3.? Encourage individual, group and milieu therapies. 4.? Obtain collateral information and evaluate affidavit for need for possible 96-hour hold.. Involuntary Hold Information 2 96 Hour Hold: 96 Hour Involuntary Admission: No Attestations NPU 2 Medical Necessity Statement*: Inpatient hospitalization is medically necessary and the clinically appropriate intervention at this time. We will monitor medication to make changes as indicated. Likely length of stay 3-5 days. Coding Level of Care Code Acute Code for [facility] Fwd Diagnoses Self-harming behavior Major depressive disorder, recurrent F33.9 PTSD (post-traumatic stress disorder) F43.10
[2024-05-15 19:18] VITALS: BP 122/70; PULSE 83; RESP 18; TEMP 36.8; O2SAT 98
[2024-05-16 06:00] VITALS: BP 107/70; PULSE 68; RESP 18; TEMP 36.8; O2SAT 99
[2024-05-16] MEDS: escitalopram 10 mg Tablet PO (08:54)
--- NOTE | 2024-05-16 12:07 | P.NPUPN_ITS ---
Subjective NPU 2 Subjective: Patient presented today reporting that she did all right. Endorsed a plan to work with the social work team on aftercare possibilities. She endorses feeling hopeful that she will be well enough to discharge tomorrow and we discussed the likelihood of discharge in the next 48 hours with a tentative plan for discharge tomorrow. She denied any side effects or medication. Mental Status Exam 2 MSE Comments: This is an overweight versus obese white female in hospital scrubs with limited grooming and eye contact. No abnormal movements except for resolving psychomotor retardation. Mostly cooperative with exam in mild distress. Speech was mostly decreased rate and volume.. Mood described as getting better, affect congruent. Thought process linear and mostly organized. Thought content: Patient denied current suicidal or homicidal ideation,, there were no delusions reported or noted.. She has also had active suicidal ideation and one suicide attempt. She reported self-harming behavior, including skin picking, bruising herself, and cutting. She has a history of anxiety with physical manifestations, including Trichotillomania. She has experienced paranoia and hypervigilance associated with PTSD, as well as occasional nightmares and flashbacks. She also reported obsessive-compulsive behaviors, such as counting stairs and excessive hand washing. Attention and concentration were intact and memory was mostly reliable but not more formally tested. She is alert and oriented x 3. Insight and judgment and are limited and impulse control is impaired. Vitals/I&O/Wt Last Vital Signs Temp 98.2 F 05/16/24 06:00 Pulse 68 05/16/24 06:00 Resp 18 05/16/24 06:00 BP 107/70 05/16/24 06:00 Pulse Ox 99 05/16/24 06:00 O2 Del Method Room Air 05/16/24 06:00 Data NPU 05/13/24 16:45 05/13/24 16:45 A&P Assessment and plan (1) Self-harming behavior: (2) Major depressive disorder, recurrent: (3) PTSD (post-traumatic stress disorder): Plan This is a 28-year-old white female that is unknown to inpatient services here but with 1 previous inpatient hospitalization and past outpatient services off and on at [facility] who presents with a complex mental health history, including depression, anxiety, PTSD, and Trichotillomania. She has a history of medication use, inpatient and outpatient treatment, self-harm, and one suicide attempt. Her symptoms are currently exacerbated by recent life changes, leading to a depressive spiral with concerns for possible cluster B pathology. 1.? Started Lexapro 10 mg p.o. daily and consider propranolol for anxiety. 2.? Continue every 15 minute checks for safety. 3.? Encourage individual, group and milieu therapies. 4.? Obtain collateral information and evaluate affidavit for need for possible 96-hour hold.. Involuntary Hold Information 2 96 Hour Hold: 96 Hour Involuntary Admission: No Attestations NPU 2 Medical Necessity Statement*: Inpatient hospitalization is medically necessary and the clinically appropriate intervention at this time. We will monitor medication to make changes as indicated. Likely length of stay 1-3 days. Coding Level of Care Code Acute Code for [facility] Fwd Diagnoses Self-harming behavior Major depressive disorder, recurrent F33.9 PTSD (post-traumatic stress disorder) F43.10
[2024-05-16 13:23] VITALS: BP 123/80; PULSE 85; RESP 16; TEMP 36.6; O2SAT 97
[2024-05-16 20:48] VITALS: BP 122/77; PULSE 74; RESP 16; TEMP 36.6; O2SAT 97
[2024-05-17 06:00] VITALS: BP 115/70; PULSE 65; RESP 17; TEMP 37.2; O2SAT 99
[2024-05-17] MEDS: escitalopram 10 mg Tablet PO (08:38)
--- NOTE | 2024-05-17 09:47 | P.NPUDS_ITS ---
Diagnoses at Discharge Discharge Diagnosis (1) Self-harming behavior: Status: Acute (2) Major depressive disorder, recurrent: Status: Acute (3) PTSD (post-traumatic stress disorder): Status: Acute Reason for Visit Reason for Visit: si Involuntary Hold Information 96 Hour Hold: 96 Hour Involuntary Admission: No Mental Status Exam MSE Comments: This is an overweight versus obese white female in hospital scrubs with limited grooming and eye contact. No abnormal movements except for resolving psychomotor retardation. Mostly cooperative with exam in mild distress. Speech was mostly decreased rate and volume.. Mood described as getting better, affect congruent. Thought process linear and mostly organized. Thought content: Patient denied current suicidal or homicidal ideation,, there were no delusions reported or noted.. She has also had active suicidal ideation and one suicide attempt. She reported self-harming behavior, including skin picking, bruising herself, and cutting. She has a history of anxiety with physical manifestations, including Trichotillomania. She has experienced paranoia and hypervigilance associated with PTSD, as well as occasional nightmares and flashbacks. She also reported obsessive-compulsive behaviors, such as counting stairs and excessive hand washing. Attention and concentration were intact and memory was mostly reliable but not more formally tested. She is alert and oriented x 3. Insight and judgment and are limited and impulse control is impaired. Discharge Data Studies Completed and Pending: Laboratory Results WBC 9.52 10^3/uL (3.2 9-11.43) 05/13/24 16:45 RBC 4.16 10^6/uL (3.8 5-5.65) 05/13/24 16:45 Hgb 11.70 g/dL (11.27 -16.99) 05/13/24 16:45 Hct 36.1 % (36-47) 05/13/24 16:45 MCV 86.8 fl (85-98) 05/13/24 16:45 MCH 28.1 pg (27-33) 05/13/24 16:45 MCHC 32.4 g/dL (30-55) 05/13/24 16:45 RDW 13.2 % (12.1-15.1 ) 05/13/24 16:45 Plt Count 256 10^3/cmm (157 -399) 05/13/24 16:45 MPV 10.3 fL (7.4-10.4 ) 05/13/24 16:45 Neut % (Auto) 65.5 % 05/13/24 16:45 Lymph % (Auto) 28.2 % 05/13/24 16:45 [place] % (Auto) 5.0 % 05/13/24 16:45 Eos % (Auto) 0.8 % 05/13/24 16:45 Baso % (Auto) 0.3 % 05/13/24 16:45 Neut # (Auto) 6.23 10^3/uL (1.8 -7.7) 05/13/24 16:45 Lymph # (Auto) 2.7 10^3/uL (0.8- 4.8) 05/13/24 16:45 [place] # (Auto) 0.5 10^3/uL (0.2- 0.9) 05/13/24 16:45 Eos # (Auto) 0.1 10^3/uL (0.0- 0.8) 05/13/24 16:45 Baso # (Auto) 0.0 10^3/uL (0.0- 0.1) 05/13/24 16:45 Nucleated RBC % (a uto) 0 % 05/13/24 16:45 Nucleated RBCs # 0.0 /100WBC 05/13/24 16:45 Sodium 141 mmol/L (136-1 45) 05/13/24 16:45 Potassium 3.7 mmol/L (3.5-5 .1) 05/13/24 16:45 Chloride 104 mmol/L (98-10 7) 05/13/24 16:45 Carbon Dioxide 25 mmol/L (22-29) 05/13/24 16:45 Anion Gap 15.7 (5-19) 05/13/24 16:45 BUN 8 mg/dL (6-20) 05/13/24 16:45 Creatinine 0.5 mg/dL (0.5-0. 9) 05/13/24 16:45 GFR Calculation 148.0 mL/min (90- 130) H 05/13/24 16:45 Glucose 92 mg/dL (65-115) 05/13/24 16:45 Calculated Osmolal ity 290 mOsm/kg (285- 295) 05/13/24 16:45 Calcium 9.7 mg/dL (8.5-10 .5) 05/13/24 16:45 Total Bilirubin 0.8 mg/dL (0.15-1 .2) 05/13/24 16:45 AST 20 U/L (0-32) 05/13/24 16:45 ALT 28 U/L (0-33) 05/13/24 16:45 Alkaline Phosphata se 67 U/L (35-105) 05/13/24 16:45 Total Protein 7.3 g/dL (6.6-8.7 ) 05/13/24 16:45 Albumin 4.3 g/dL (3.5-5.2 ) 05/13/24 16:45 Globulin 3.0 g/dL (1.3-4.6 ) 05/13/24 16:45 HCG, Qual Negative (Negati ve) 05/13/24 16:35 Salicylates < 0.3 mg/dL (3-10 ) L 05/13/24 16:45 Urine Opiates Scre en Negative ng/mL (N egative) 05/13/24 16:35 Acetaminophen < 5.0 ug/mL (10-3 0) L 05/13/24 16:45 Ur Barbiturates Sc reen Negative ng/mL (N egative) 05/13/24 16:35 Ur Phencyclidine S crn Negative ng/mL (N egative) 05/13/24 16:35 Ur Amphetamines Sc reen Negative ng/mL (N egative) 05/13/24 16:35 U Benzodiazepines Scrn Negative ng/mL (N egative) 05/13/24 16:35 Urine Cocaine Scre en Negative ng/mL (N egative) 05/13/24 16:35 U Marijuana (THC) Screen Negative ng/mL (N egative) 05/13/24 16:35 Ethyl Alcohol < 10 mg/dL (0-10) 05/13/24 16:45 Vitals: Last Vital Signs Temp 98.9 F 05/17/24 06:00 Pulse 65 05/17/24 06:00 Resp 17 05/17/24 06:00 BP 115/70 05/17/24 06:00 Pulse Ox 99 05/17/24 06:00 O2 Del Method Room Air 05/17/24 06:00 Discharge Plan Discharge Patient Disposition: Home Condition: Stable Prescriptions: New escitalopram oxalate 10 mg Tablet 10 mg PO DAILY 30 Days Qty: 30 1RF Continued docusate sodium 100 mg Capsule 100 mg PO BID Qty: 60 0RF Discontinued buspirone 10 mg tablet 10 mg PO BID fluoxetine 40 mg capsule 40 mg PO DAILY Discharge Orders: Discharge Order (Routine); Ordered 05/17/24 Ordered By: James Interiano Referrals: [facility] [Outside] Tiago Grimaldo MD [Primary Care Provider] - Discharge Diet: Regular Discharge Activity: Resume usual activity Patient Instructions: Opioid Safety Discharge Attestations NPU Time Spent in Discharge Care*: less than 30 min Specific Discharge Activities: Specific discharge activities: educating patient, discussing with employment case manager/social workers/dc planners, doc umenting/other paperwork and evaluating patient/reviewing data Coding Level of Care Code Acute Code for [facility] Fwd Diagnoses Self-harming behavior Major depressive disorder, recurrent F33.9 PTSD (post-traumatic stress disorder) F43.10
[2024-05-17 09:53] VITALS: BP 115/70; PULSE 65; RESP 17; TEMP 37.2; O2SAT 99
[2024-05-17] MEDS: hyDROXYzine 25 mg Capsule 50 MG PO (12:08)
--- NOTE | 2024-05-17 12:09 | PC.NURSE ---
Vistaril 50mg PO to patient for anxiety
== END 2024-05-17 14:21 | disposition home or self-care (01) | DRG 885 ==
LOC: ER 16:36 → NP 17:56
PROVIDERS: Emergency Medicine; Admitting Provider Psychiatry & Neurology Psychiatry; Emergency Provider Physician Assistant; PCP Family Medicine; Visit Provider Psychiatry & Neurology Psychiatry
DX: F33.9 Major depressive disorder, recurrent, unspecified (principal); Z81.8 Family history of other mental and behavioral disorders; F43.10 Post-traumatic stress disorder, unspecified
CPT/HCPCS: 36415; 80053; 80306; 80307; 81025; 85025; 97150; 97165; 99285

== ENCOUNTER → 2024-09-12 16:09 | Outpatient (BNVA) | payer OTHER, SELFPAY | PROVIDERS: PCP Family Medicine; Visit Provider Nurse Practitioner Psychiatric/Mental Health | DX: F33.2 Major depressive disorder, recurrent severe without psychotic features (principal); F90.0 Attention-deficit hyperactivity disorder, predominantly inattentive type; Z79.899 Other long term (current) drug therapy | CPT/HCPCS: 80061; 83036 ==

== ENCOUNTER → 2024-12-17 14:20 | Outpatient (BNVA) | payer MEDICAID, SELFPAY | PROVIDERS: PCP Family Medicine; Visit Provider Internal Medicine | DX: R07.9 Chest pain, unspecified (principal) | CPT/HCPCS: 93005 ==

== ENCOUNTER 2025-01-06 20:53 | Emergency (ER) | payer SELFPAY ==
[2025-01-06 20:55] VITALS: BP 137/87; PULSE 92; RESP 18; TEMP 36.5; O2SAT 100
--- NOTE | 2025-01-06 21:59 | W.ED.WOUNDLC ---
HPI - Wound/Laceration General: Chief Complaint: Wound/Laceration Stated Complaint: Rt hand Finger Cut Time Seen by Provider: 01/06/25 21:05 Source: patient Mode of arrival: ambulatory Limitations: no limitations History of Present Illness: 29-year-old female who states she was cleaning her sister's hair accidentally cut her left thumb with her scissors she has a very superficial laceration to distal pad of her left thumb tetanus was greater than 10 years ago she denies any pain bleeding is controlled this time. Associated symptoms: Denies chills, fever(s), nausea or vomiting Related Data Previous Rx's ?Medication ?Instructions ?Recorded aripiprazole 2 mg tablet (Abilify) 4 mg (2 x 2 mg) PO .6 pm #60 tabs 12/19/24 Allergies Allergy/AdvReac Type Severity Reaction Status Date / Time Kiwi Allergy Mild ALGY-Wheezi Uncoded 01/06/25 21:00 ng Review of Systems Const: Denies: fever(s), chills, body aches or change in appetite ENMT: Denies: throat pain or dental pain Card: Denies: chest pain Resp: Denies: dyspnea GI: Denies: abdominal pain, nausea, vomiting or diarrhea Musc: Reports: extremity pain; Denies: neck pain or back pain Skin/Breast: Denies: rash Neuro: Denies: headache(s) PFS ED PFSH: Medical History ADHD (attention deficit hyperactivity disorder), inattentive type Trichotillomania Mixed obsessional thoughts and acts Autism spectrum disorder requiring support (level 1) Non-suicidal self harm as coping mechanism Chronic post-traumatic stress disorder Generalized anxiety disorder Major depressive disorder, recurrent severe without psychotic features Psychiatric care hemorrhage Iron deficiency anemia Surgical History No history of previous surgery Family History Grandfather Hypertension maternal Heart disease maternal Hyperlipidemia maternal Lung cancer maternal Mother Diabetes Stroke Grandmother Stroke paternal Thyroid disease paternal Breast cancer maternal great Family/Other Breast cancer maternal great aunt Ovarian cancer maternal great aunt Uterine cancer maternal great aunt, paternal aunt Social History Smoking and tobacco/nicotine status: never used tobacco/nicotine Alcohol intake: never Substance/Drug Use: never Physical Exam Const: COMMON NORMALS: no acute distress, patient oriented x3 and healthy appearing HENMT: COMMON NORMALS: normocephalic and atraumatic HEAD & SCALP: normocephalic and atraumatic Eye: COMMON NORMALS: conjunctivae normal CONJUNCTIVA: Yes conjunctivae normal Neck/C-Spine: COMMON NORMALS: full ROM and supple Chest: COMMONS NORMALS: normal inspection of the chest Resp: COMMON NORMALS: normal respiratory effort Cardio: COMMON NORMALS: regular rate RATE: regular rate Extremity: COMMON NORMALS: normal to inspection Neuro: COMMON NORMALS: patient oriented x3, moves all extremities and no focal motor deficits Psych: COMMON NORMALS: mental status grossly normal, Normal thought process present and cooperative THOUGHT PROCESS: Normal thought process present Skin: NARRATIVE SKIN EXAM: Superficial less than 1 cm laceration to distal tip of left thumb Procedures Laceration Laceration 1: Site: hand Side (If applicable): left Size (cm): 1 Description: linear Depth: simple, single layer Pre-repair: wound explored and irrigated extensively Skin layer closed with: other (dermabond) Course Vital Signs: Vital signs: Vital Signs Temperature 97.7 F 01/06/25 20:55 Pulse Rate 92 01/06/25 20:55 Respiratory Rate 18 01/06/25 20:55 Blood Pressure 137/87 01/06/25 20:55 Pulse Oximetry 100 01/06/25 20:55 MDM - Wound/Laceration Medical Decision Making Patient presents here superficial laceration was repaired with tissue adhesive patient stable for discharge follow-up PCP return if worsening. Medical Records I reviewed the patient's medical records. No radiology studies performed this visit Discharge Plan Discharge Patient Disposition: Home Clinical Impression: Laceration of left thumb Condition: Stable Prescriptions: No Action aripiprazole [Abilify] 2 mg tablet 4 mg PO .6 pm Qty: 60 4RF Rx Instructions: Take two tablets at 6 pm Discharge Orders: Discharge ED (Routine); Ordered 01/06/25 Ordered By: Rowena Fonseca Referrals: Susan Miramontes DO [Primary Care Provider] - 4-7 days Discharge Diet: Advance as tolerated Discharge Activity: Resume usual activity Patient Instructions: Laceration (ED), Skin Adhesive Care (ED) Print Language: Tajik Coding Level of Care Code ED Operating Manager for Deion Leiva
[2025-01-06] MEDS: tetanus-dipt-pertussis 0.5 mL SDV IM (22:04)
== END 2025-01-06 22:16 | disposition home or self-care (01) ==
PROVIDERS: Emergency Provider Emergency Medicine; PCP Family Medicine
DX: S61.012A Laceration without foreign body of left thumb without damage to nail, initial encounter (principal); W27.2XXA Contact with scissors, initial encounter
CPT/HCPCS: 12001; 90715; 99283

== ENCOUNTER 2025-01-20 12:44 | Outpatient (CLI) | payer MEDICAID, SELFPAY ==
--- NOTE | 2025-01-20 12:45 | USCV_ITS ---
Melida Arora Age: 29 Gender: F : 1995 Exam Date: 01/20/2025 12:56 Ordering Phys: Anupam Hoff M.D ([email or web address]) Technologist: Exam Location: [facility] [place] Indication: murmur BP: 120 / 67 HR: 75 Rhythm: Sinus Technical Quality: Adequate MEASUREMENTS (Male / Female) Normal Values 2D ECHO LV Diastolic Diameter PLAX 4.5 cm 4.2 - 5.9 / 3.9 - 5.3 cm IVS Diastolic Thickness 1.0 cm 0.6 - 1.0 / 0.6 - 0.9 cm IVS Systolic Thickness 1.5 cm LVPW Diastolic Thickness 1.3 cm 0.6 - 1.0 / 0.6 - 0.9 cm LVPW Systolic Thickness 1.5 cm LVOT Diameter 2.1 cm LV Ejection Fraction 2D Teich 68.8 % LV Ejection Fraction MOD 4C 66.8 % LV Ejection Fraction MOD 2C 53.0 % LV Ejection Fraction 2C AL 51.5 % LA Diameter 2.7 cm RA Systolic Volume 4C AL 38.9 ml RA Systolic Volume 4C MOD 37.8 ml Aorta at Sinotubular Diameter 2.4 cm IVC Diameter 1.4 cm M-MODE LA Ao Ratio MM 1.2 AV Cusp Separation MM 2.2 cm DOPPLER AV Peak Velocity 128.0 cm/s LVOT Peak Velocity 91.0 cm/s AV Area Cont Eq vti 3.1 cm squared AV Area Cont Eq pk 2.4 cm squared MV Peak Velocity 97.0 cm/s MV Area PHT 4.0 cm squared Mitral E to A Ratio 1.3 TR Peak Velocity 120.0 cm/s TR Peak Gradient 5.8 mmHg TV Peak E Velocity 117.0 cm/s PV Peak Velocity 127.0 cm/s FINDINGS Left Ventricle Left ventricle is normal in size. LV systolic function is normal with EF 55-60%. No regional wall motion abnormalities are seen. Right Ventricle Normal in size and function Right Atrium Normal in size Left Atrium Normal in size Mitral Valve Structurally normal mitral valve. Mild mitral regurgitation. Aortic Valve Structurally normal aortic valve. No significant stenosis or regurgitation. Tricuspid Valve Mild tricuspid regurgitation. Insufficient TR jet to calculate RVSP Pulmonic Valve Not well visualized Pericardium Normal Aorta Normal in size IVC Appears to be normal CONCLUSIONS LV systolic function is normal with EF of 55-60% Mild mitral regurgitation. Mild tricuspid regurgitation. Anupam Hoff MD (Electronically Signed) Final Date: 02 Feb 2025 14:42 S
== END 2025-01-20 12:45 | disposition home or self-care (01) ==
PROVIDERS: PCP Family Medicine; Visit Provider Internal Medicine
DX: R07.9 Chest pain, unspecified (principal); R06.02 Shortness of breath; R55 Syncope and collapse; I34.0 Nonrheumatic mitral (valve) insufficiency; I07.1 Rheumatic tricuspid insufficiency
CPT/HCPCS: 93306